=== PATIENT | female | born 1955 | race Caucasian/White ===

== ENCOUNTER 2021-08-04 21:32 | Inpatient (IN) | payer MEDICARE, SELFPAY ==
--- NOTE | ~2021-08-04 | XR_ITS ---
EXAMINATION: XR UGI water soluble w sbs DATE: 08/06/2021 11:52 INDICATION: Small bowel obstruction TECHNIQUE: Water-soluble contrast was injected through the nasogastric tube. Conventional supine abdo men radiographs and fluoroscopy of the stomach and small bowel were performed. Fluoroscopy exposure t abelino was 1.8 minutes. The DAP for this procedure was 110.86 Gycm2. COMPARISON: None. FINDINGS: UPPER GASTROINTESTINAL SERIES: The tip of the nasogastric tube is in the proximal duodenum. There is no identified hiatal hernia. Th ere was no visualized gastroesophageal reflux. The stomach shows a normal folding pattern.] SMALL BOWEL SERIES: Transit time from the stomach to proximal colon was approximately 15 minutes. There is normal caliber and mucosal fold pattern throughout the small bowel. There are mildly thickened folds in the small b owel of the left midabdomen, possibly related to recent obstruction. Terminal ileum is normal. No te thering or abnormal mass effect observed upon the small bowel with real-time fluoroscopy. IMPRESSION: 1. Resolved small bowel obstruction. Mildly thickened small bowel folds of the left upper abdomen may be related to recent obstruction. Reviewed, dictated and finalized at location A.
--- NOTE | ~2021-08-04 | CT_ITS ---
EXAMINATION: CT abdomen pelvis w con EXAM DATE: 08/04/2021 23:58 INDICATION: Mid abdominal pain. n/v/d . TECHNIQUE: Spiral CT of the abdomen and pelvis was performed following intravenous injection of 100 m L Omnipaque 350. Axial, coronal and sagittal images of the abdomen and pelvis were reviewed. The do se-length product (DLP) for this examination was 1375.71 mGy-cm. The exposure was tailored according to patient size (auto mA exposure control), and iterative reconstruction (ASIR) was used as addition al dose reduction technique. There is no prior study for comparison. FINDINGS: There is a loop of ileum (approximately 15 cm in length) that has moderately thickened wall , segment has been indicated on axial images 131-139 for your review. There is fecal stasis proximal to this, and a multiple loops of moderately distended mid small bowel up to about 3.3 cm. There is mi ld edema within the mesentery of these mid small bowel loops. Only small amount of fluid is seen with in the ileum distal to the abnormal segment. There is expected amount of colonic stool. The mesenteri c arteries and veins enhance normally. The liver, spleen, adrenal glands and pancreas are unremarkable. There are surgical clips in the gal lbladder fossa. Some biliary duct dilation which is common finding following cholecystectomy. Arun l and splenic veins are patent. Kidneys enhance symmetrically. There is no hydronephrosis. The ut erus is not identified and has likely been surgically resected. The bladder is unremarkable. There is no retroperitoneal or pelvic lymphadenopathy. The appendix is not positively visualized. There is no pericecal inflammatory change to suggest appe ndicitis. There is expected amount of colonic stool. No free intraperitoneal gas. Mild cardio megaly. The lung bases are unremarkable. Thoracic Erwin rods. There are no osteoblastic or ost eolytic lesions identified. IMPRESSION: Segment of mid small bowel with moderate wall thickening resulting in fecal stasis, moder ately distended small bowel proximal to this from ileus or obstruction. Some mesenteric edema. Appear ance most consistent with infectious enteritis or inflammatory bowel disease, although adhesion relat ed obstruction not excludable. Reviewed, dictated and finalized at location B. IMPRESSION: Segment of mid small bowel with moderate wall thickening resulting in fecal stasis, moderately distended small bowel proximal to this from ileus o r obstruction. Some mesenteric edema. Appearance most consistent with infectiou s enteritis or inflammatory bowel disease, although adhesion related obstructio n not excludable.
--- NOTE | ~2021-08-04 | XR_ITS ---
EXAMINATION: XR abdomen/kub 1V INDICATION: Small bowel obstruction TECHNIQUE: Supine views of the abdomen were obtained on 2 radiographs. COMPARISON: 08/05/2021 FINDINGS: The nasogastric tube is unchanged in position ending in the distal stomach or proximal smal l bowel. No dilated loops of bowel are identified. There is no evidence of free intraperitoneal gas. Cholecystectomy clips are noted. There is moderate osteoarthritis of the hips. Partially imaged hayes es of posterior fusion procedure are noted in the thoracic spine. IMPRESSION: 1. No dilated bowel loops identified. Reviewed, dictated and finalized at location A.
--- NOTE | ~2021-08-04 | XR_ITS ---
EXAMINATION: XR abdomen NG/feed tube rechec DATE: 08/05/2021 10:03 INDICATION: Nasogastric tube advancement. TECHNIQUE: An upright view of the abdomen was obtained. COMPARISON: CT abdomen and pelvis 08/04/2021 FINDINGS: The lower abdomen is excluded. There are no dilated loops of bowel. The nasogastric tube ti p is in the distal stomach or proximal duodenum. Surgical clips in the right upper quadrant are likel y from cholecystectomy. There are changes of posterior fusion procedure in thoracic spine. IMPRESSION: 1. Nasogastric tube tip in the distal stomach or proximal duodenum. Reviewed, dictated and finalized at location A.
--- NOTE | ~2021-08-04 | XR_ITS ---
EXAMINATION: XR abdomen NG/feed tube insert INDICATION: Nasogastric tube placement TECHNIQUE: Portable AP KUB-NG at 0220 hours COMPARISON: CT from yesterday FINDINGS: The nasogastric tube is in the stomach. There is mild atelectasis of the lung bases. The he art size is normal. Contrast from earlier CT partially opacifies the urinary tract. 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 IMPRESSION: 1. Nasogastric tube in the stomach. Reviewed, dictated and finalized at location A.
[2021-08-04 21:36] VITALS: BP 151/73; PULSE 78; RESP 16; TEMP 36.2; O2SAT 95
[2021-08-04 21:54] LABS: Basophils Absolute Auto 0.1 K/mm3 (0.0-0.1); Basophils Percent Auto 0.5 % (0.2-1.2); Eosinophils Absolute Auto 0.1 K/mm3 (0-0.3); Eosinophils Percent Auto 1.1 % (0-4.4); Hematocrit 43.4 % (37.0-47.0); Hemoglobin 14.1 g/dL (12.0-15.0); Immature Granulocyte Absolute 0.02 K/mm3 (0.00-0.031); Immature Granulocyte Percent A 0.2 % (0-0.5); Lymphocytes Absolute Auto 0.76 K/mm3 (0.9-3.2); Lymphocytes Percent Auto 8.3 % (18.3-44.2); Mean Corpuscular HGB Conc 32.5 g/dl (32-36); Mean Corpuscular Hemoglobin 30.4 pg (26-34); Mean Corpuscular Volume 93.5 fl (80-100); Mean Platelet Volume 9.9 fl (7.4-10.4); Monocytes Absolute Auto 0.4 K/mm3 (0.1-0.6); Neutrophils Absolute Auto 7.8 K/mm3 (1.3-6.7); Neutrophils Percent Auto 85.9 % (45.5-73.1); Platelet Count Result 226 k/mm3 (150-375); Red Blood Count 4.64 M/mm3 (4.2-5.4); Red Cell Distribution Width 13.7 % (11.5-14.5); White Blood Count 9.1 K/mm3 (4.5-10.0)
[2021-08-04 22:05] LABS: Alanine Aminotransferase 15 U/L (4-35); Albumin Level 4.3 g/dL (3.5-5.1); Alkaline Phosphatase 141 U/L (38-126); Anion Gap 8 mmol/L (8-16); Aspartate Amino Transferase 23 U/L (14-36); Bilirubin,Total 0.9 mg/dL (0.2-1.3); Blood Urea Nitrogen 30 mg/dL (7-17); Calcium 9.1 mg/dL (8.4-10.2); Carbon Dioxide 31 mmol/L (22-30); Chloride 98 mmol/L (98-107); Estimated CRCL calculation 69 ml/min; Estimated Glomerular Filt Rate > 60; Glucose 247 mg/dL (65-110); Lipase 242 U/L (23-300); Potassium 4.1 mmol/L (3.4-5.0); Sodium 137 mmol/L (137-145)
[2021-08-04 22:38] VITALS: O2SAT 94
[2021-08-04 23:15] VITALS: O2SAT 89
[2021-08-04 23:17] VITALS: BP 164/90; O2SAT 85
--- NOTE | 2021-08-04 23:28 | ED.ABDPAIN ---
HPI - Abdominal Pain General Chief Complaint: Abdominal Pain Stated Complaint: abdominal/back pain, n/v Time Seen by Provider: 08/04/21 22:37 Source: patient, family and RN notes reviewed Mode of arrival: ambulatory History of Present Illness HPI narrative: 66-year-old female history of cholecystectomy presented to the emergency department for evaluation of nausea vomiting and diarrhea that started this afternoon. Patient states that she has had multiple episodes of nausea and vomiting. Patient states approximately 4 PM she also began developing mid abdominal pain. Patient does report prior history of cholecystectomy. Patient denies any prior history of small bowel obstruction. Patient denies any chest pain or shortness breath. Patient denies any pain with urination Related Data Home Medications Medication Instructions Recorded Confirmed celecoxib [Celebrex] 200 mg PO DAILY 08/04/21 08/05/21 famotidine 10 mg PO BID 08/04/21 08/05/21 gabapentin 300 mg PO TID 08/04/21 08/05/21 glipizide 10 mg PO BID 08/04/21 08/05/21 hydrochlorothiazide 10 mg PO BID 08/05/21 08/05/21 mirabegron [Myrbetriq] 50 mg PO DAILY 08/05/21 08/05/21 Allergies Allergy/AdvReac Type Severity Reaction Status Date / Time azithromycin Allergy Nausea and Verified 08/04/21 21:40 Vomiting Review of Systems Review of Systems: CONSTITUTIONAL: Denies fever, chills, or sweats. EYES: Denies visual changes, redness, or discharge. ENT: Denies rhinorrhea, congestion, sore throat, or otalgia. CARDIOVASCULAR: Denies chest pain, palpitations, or edema. RESPIRATORY: Denies cough or dyspnea. GASTROINTESTINAL: Mid abdominal pain with associated nausea vomiting diarrhea. GENITOURINARY: Denies dysuria or hematuria. SKIN: Denies rash or itching. MUSCULOSKELETAL: Denies back pain, joint pain, or myalgia. NEUROLOGIC: Denies headache, numbness, or weakness. All systems reviewed & are unremarkable except as noted in HPI and below PMFSH Family History Family History (Updated 08/05/21 @ 04:55 by Ana Montes RN) Father Acute myocardial infarction Mother Lung cancer Grandparent Breast cancer Social History Social History Smoking status: Never smoker Second hand tobacco smoke exposure: No Alcohol intake: never Substance use: never Spiritual care concerns: No Exam Narrative: APPEARANCE: Well appearing, no pain, no distress, well-nourished. HEAD: normocephalic, atraumatic. EYES: PERRLA/EOMI, conjunctivae clear. NOSE: Normal no drainage NECK: Supple. No adenopathy, no masses. RESPIRATORY: Airway patent, respirations nonlabored. Clear to auscultation bilaterally, no rales, rhonchi, wheezing. CARDIOVASCULAR: Regular rate and rhythm without murmurs rubs or gallops. ABDOMINAL: Normal bowel sounds MUSCULOSKELETAL: Moves all extremities. Strength/ROM intact, No edema, No calf tenderness. NEURO: Alert. Cranial nerves II through XII intact. Grossly intact SKIN: Warm, dry. Normal Color Course Course Emergency Course: Case was discussed with Dr. Ahn and he will see the patient as consult. NG tube was placed. Discussed with the hospitalist patient was accepted for admission. Admitted on the results of the labs and imaging and plan for treatment. Vital Signs Vital signs: Vital Signs Temperature 97.1 F L 08/04/21 21:36 Pulse Rate 78 08/04/21 21:36 Respiratory Rate 16 08/04/21 21:36 Blood Pressure 151/73 H 08/04/21 21:36 Pulse Oximetry 95 08/04/21 21:36 Temperature 97.7 F 08/05/21 06:00 Pulse Rate 77 08/05/21 06:00 Respiratory Rate 18 08/05/21 06:00 Blood Pressure 160/80 H 08/05/21 06:00 Pulse Oximetry 97 08/05/21 06:00 MDM - Abdominal Pain Lab Data Attestation: I reviewed the patient's lab results. Result diagrams: 08/04/21 21:49 08/04/21 21:49 Labs: Lab Results 08/04/21 08/04/21 08/05/21 Range/Units 21:49 21:49 00:26 WBC 9.1 (4.5-10.0) K/mm3 RBC 4.64 (4.
[2021-08-04] MEDS: ONDANSETRON INJ 4 MG/2 ML VIAL IV PUSH (23:39)
[2021-08-04] MEDS: HYDROmorphone HCL INJ (*CRX) 1 MG/ML SYR 0.5 MG IV PUSH (23:39)
[2021-08-05] VITALS (17 sets, daily range): BP systolic 128–160; BP diastolic 57–87; PULSE 73–82; RESP 16–18; TEMP 35.9–37.7; O2SAT 88–99; BMI 43.4
--- NOTE | 2021-08-05 00:28 | PC.NURSE ---
Urine sent to lab
[2021-08-05 00:34] LABS: Appearance Urine Clear (Clear); Bilirubin Urine 1+ (Negative); Color Urine Yellow (Yellow); Glucose Urine UA 1+ mg/dL (Negative); Ketones Urine Trace mg/dL (Negative); Leukocyte Esterase Ur Negative LEU/UL (Negative); Nitrate Urine Negative (Negative); Protein Urine 2+ mg/dL (Negative); Specific Grav Ur >= 1.030 (1.001-1.035); pH Urine 6.5 (5.0-9.0)
[2021-08-05 00:38] LABS: Add Urine Microscopic? YES; Bacteria Urine Trace /hpf; Blood Urine Trace (Negative); Mucus Urine Few /lpf; RBC Urine 0-2 /hpf (0-2); Squamous Epithelial Cell Urine Occasional /hpf (Few); WBC Urine 0-3 /hpf
[2021-08-05] MEDS: HYDROmorphone HCL INJ (*CRX) 1 MG/ML SYR 0.5 MG IV PUSH (01:53)
--- NOTE | 2021-08-05 03:09 | PC.NURSE ---
ERP confirmed pts placement of NG tube.
--- NOTE | 2021-08-05 04:45 | ADMGEN ---
This patient, Larissa Bui, was admitted to [facility] Surg Room 313-01. Patient/family oriented to hospital policies and general routines including ID bracelet, bed and alarms, visiting hours, pain management, procedures, bathroom and other care routines, personal items, smoking policy, room service/diet, and visiting hours. Information on how to activate the Rapid Response Team has been discussed. Patient/Family are encouraged to report perceived risks to care and to ask questions if they do not understand what they are told or what they should do.
[2021-08-05] MEDS: SODIUM CHLORIDE 0.9% IV 1,000 ML 75 ML IV CONT ×2 (05:06→20:22)
[2021-08-05] MEDS: ONDANSETRON INJ 4 MG/2 ML VIAL IV PUSH (05:07)
--- NOTE | 2021-08-05 09:44 | PM.CNGS ---
Assessment and Plan Assessment and plan (1) SBO (small bowel obstruction): Code(s): K56.609 - Unspecified intestinal obstruction, unspecified as to partial versus complete obstruction Status: Acute Assessment and Plan: CT scan reviewed and discussed with the patient in detail. She is already clinically improving with no abdominal pain or tenderness on exam. Will continue to treat this with conservative measures with NG tube decompression, bowel rest, IV fluids, and analgesics. NG tube advanced 6 cm this morning and repeat KUB pending, will look out for this later this morning to confirm placement. Continue to monitor with serial abdominal exams and imaging. Discussed with the patient that this typically resolves with conservative measures, but could require exploratory surgery if no improvement in the next few days. Thank you for allowing us to see the patient in consultation and we will continue to follow along with you. (2) Type 2 diabetes mellitus: Code(s): E11.9 - Type 2 diabetes mellitus without complications Status: Acute Assessment and Plan: Glucose in the 200's on admission. No previous hgbA1C in our system. Continue to monitor labs. Management per Hospitalist. (3) Hypertension: Code(s): I10 - Essential (primary) hypertension Status: Acute (4) Obstructive sleep apnea: Code(s): G47.33 - Obstructive sleep apnea (adult) (pediatric) Status: Acute Assessment and Plan: Patient has been without her CPAP over the past few months due to having it sent back in for a recall and she has not received it back. Could use a CPAP while inpatient and encouraged her to contact the company or her insurance to have her CPAP replaced after discharge. (5) GERD (gastroesophageal reflux disease): Code(s): K21.9 - Gastro-esophageal reflux disease without esophagitis Status: Acute (6) Obesity, morbid, BMI 40.0-49.9: Code(s): E66.01 - Morbid (severe) obesity due to excess calories Status: Acute Additional Plan I have discussed the patient's case and plan of care with Dr. Ahn. History of Present Illness Consult details Consult date: 08/05/21 Reason for consult: other (Small-bowel obstruction) Requesting physician: Bennie Braun MD Narrative: This is a 66-year-old female who presented to the emergency department with complaints of abdominal pain. She has recently moved to [place] from [place] to be closer to her daughter who lives in the area. Over the past few days, she had been walking more frequently throughout the day due to the move and shopping for furniture. Yesterday, around 1:00 p.m., she began to notice mild abdominal pain that spread across her upper abdomen and around to her back. She called her daughter and initially felt she was sore due to all the walking. Her daughter brought over a heating pad and some ice, which did not help with her pain. She developed nausea and reports that her abdominal pain became more severe over the next few hours. The pain would come in waves. She denies having any similar pain in the past. She decided to come into the ER for further evaluation. She reports vomiting in the ER. CT scan of the abdomen and pelvis showed evidence of a small bowel obstruction. The patient was admitted to the hospitalist and an NG tube has been placed. Our service has been consulted for surgical evaluation of the small-bowel obstruction. The patient is now seen on the medical floor. Dr. Ahn has already evaluated the patient and requested the NG tube be advanced 6 cm, which the nurse has done this morning. The patient reports feeling much better. She denies any abdominal pain at the time of my exam. Her main complaint is the discomfort from the NG tube. She denies flatus. She denies any recent diarrhea or close contacts with similar symptoms. She does have a history of a laparoscopic cholecystectomy, total abdominal hysterectomy,
[2021-08-05] MEDS: PHENOL/SOD PHENO SPRAY CHERRY (*BKC) 1 SPRAY MUCOUS MEM (10:43)
--- NOTE | 2021-08-05 17:55 | PM.IMHP ---
H&P: HPI History of Present Illness Date/Time: 08/05/21 17:55 Chief Complaint: Abdominal pain Narrative: Pt admitted after sudden abdominal pain yesterday afternoon, pt could not keep any food down yesterday. Pt has moved recently from [place] to [facility] to be near her daughter. Pt states she has multiple surgeries over the years carpel tunnel, hysterectomy, laparoscopic cholecystectomy, back surgery and neck surgery. ct showing - Segment of mid small bowel with moderate wall thickening resulting in fecal stasis, moderately distended small bowel proximal to this from ileus or obstruction. Pt admitted for sbo, pt seen by surgery. Pt had ng tube inserted to wall suction. Pt has medical history of dm, gerd, htn and MASSIEL. Review of Systems Review of Systems: All systems reviewed & are unremarkable except as noted in HPI and below PMFSH Past Medical History Medical History GERD (gastroesophageal reflux disease) Hypertension Obstructive sleep apnea Overactive bladder Type 2 diabetes mellitus Surgical History Surgical History History of cervical spinal surgery History of section History of laparoscopic cholecystectomy History of spinal fusion History of surgery on wrist History of total abdominal hysterectomy and bilateral salpingo-oophorectomy 1999 Family History Family History Father Acute myocardial infarction Mother Lung cancer Grandparent Breast cancer Social History Social History Social History: The patient recently moved to [place] from [place] to be closer to her daughter. She lives alone in an apartment in [place] that is not considered assisted living, but does have some assistance if needed. Smoking status: Never smoker Second hand tobacco smoke exposure: No Alcohol intake: never Substance use: never Living arrangements: alone Gender identity (if verbalized by the patient): Female Spiritual care concerns: No Meds Home Medications and Allergies Home Medications Medication Instructions Recorded Confirmed Type celecoxib [Celebrex] 200 mg PO DAILY 08/04/21 08/05/21 History famotidine 10 mg PO BID 08/04/21 08/05/21 History gabapentin 300 mg PO TID 08/04/21 08/05/21 History glipizide 10 mg PO BID 08/04/21 08/05/21 History hydrochlorothiazide 10 mg PO BID 08/05/21 08/05/21 History mirabegron [Myrbetriq] 50 mg PO DAILY 08/05/21 08/05/21 History Allergies Allergy/AdvReac Type Severity Reaction Status Date / Time azithromycin Allergy Nausea and Verified 08/04/21 21:40 Vomiting Vital Signs Vital Signs - 24 hr 08/04/21 21:36 08/04/21 22:38 08/04/21 23:15 Temperature 36.2 C L Pulse Rate 78 Respiratory Rate 16 Blood Pressure 151/73 H Pulse Oximetry 95 94 89 L 08/04/21 23:17 08/05/21 00:14 08/05/21 00:19 Temperature Pulse Rate Respiratory Rate Blood Pressure 164/90 H Pulse Oximetry 85 L 93 94 08/05/21 00:27 08/05/21 00:30 08/05/21 00:45 Temperature Pulse Rate 73 Respiratory Rate Blood Pressure Pulse Oximetry 88 L 96 98 08/05/21 01:00 08/05/21 01:15 08/05/21 01:30 Temperature Pulse Rate Respiratory Rate Blood Pressure Pulse Oximetry 89 L 99 97 08/05/21 02:16 08/05/21 03:02 08/05/21 03:30 Temperature 36.5 C Pulse Rate 82 75 Respiratory Rate 18 18 Blood Pressure 155/87 H 160/84 H Pulse Oximetry 94 96 96 08/05/21 06:00 08/05/21 08:15 08/05/21 14:00 Temperature 36.5 C 35.9 C L Pulse Rate 77 81 Respiratory Rate 18 18 Blood Pressure 160/80 H 136/57 L Pulse Oximetry 97 97 98 Exam Const: General: other (overweight) HENMT: Head: normocephalic (with ng tube in situ ) Eyes: General: appearance normal, both eyes and all related struct
[2021-08-06] VITALS (8 sets, daily range): BP systolic 116–178; BP diastolic 60–93; PULSE 77–87; RESP 14–18; TEMP 36.2–36.9; O2SAT 93–99
[2021-08-06 00:37] LABS: Glucose Point of Care 137 mg/dl (65-105)
[2021-08-06 06:08] LABS: Hematocrit 40.5 % (37.0-47.0); Mean Corpuscular HGB Conc 32.1 g/dl (32-36); Mean Corpuscular Hemoglobin 30.4 pg (26-34); Mean Corpuscular Volume 94.8 fl (80-100); Mean Platelet Volume 9.7 fl (7.4-10.4); Platelet Count Result 204 k/mm3 (150-375); Red Blood Count 4.27 M/mm3 (4.2-5.4); Red Cell Distribution Width 13.5 % (11.5-14.5); White Blood Count 5.8 K/mm3 (4.5-10.0)
[2021-08-06 06:19] LABS: Glucose Point of Care 150 mg/dl (65-105)
[2021-08-06 06:20] LABS: Anion Gap 4 mmol/L (8-16); Blood Urea Nitrogen 27 mg/dL (7-17); Calcium 8.4 mg/dL (8.4-10.2); Carbon Dioxide 38 mmol/L (22-30); Chloride 98 mmol/L (98-107); Estimated CRCL calculation 70 ml/min; Estimated Glomerular Filt Rate > 60; Glucose 155 mg/dL (65-110); Potassium 3.7 mmol/L (3.4-5.0); Sodium 140 mmol/L (137-145)
--- NOTE | 2021-08-06 09:13 | PM.PNGS ---
Progress Note: A&P Assessment and Plan (1) SBO (small bowel obstruction): Code(s): K56.609 - Unspecified intestinal obstruction, unspecified as to partial versus complete obstruction Status: Acute Assessment and Plan: Plain films this morning showed a nonobstructive bowel gas pattern and the NG may potentially have been advanced into the duodenum, which could explain high NG output. Patient is passing gas and her abdominal exam is benign. Will get a Gastrografin small bowel follow through to assess. If contrast moves through to the colon without an obstruction, then we will remove the NG tube and start clear liquids. For now, continue NG tube decompression, bowel rest, and IV fluids. (2) Type 2 diabetes mellitus: Code(s): E11.9 - Type 2 diabetes mellitus without complications Status: Acute (3) Obstructive sleep apnea: Code(s): G47.33 - Obstructive sleep apnea (adult) (pediatric) Status: Acute (4) Obesity, morbid, BMI 40.0-49.9: Code(s): E66.01 - Morbid (severe) obesity due to excess calories Status: Acute Additional Plan I have discussed the patient's case and plan of care with Dr. Ahn. Subjective Subjective Date/Time Seen: 08/06/21 09:00 Patient reports: no new complaints, feels better, flatus and no bowel movement Interval history: Patient seen and examined. She reports having a headache this morning with some relief from the IV Tylenol. Denies any abdominal pain and feels her bloating is better. She was able to walk the halls yesterday. She reports flatus. NG had 1700 cc documented output from overnight, patient reportedly only had 2 cups of ice chips through the night. Review of Systems Review of Systems: All systems reviewed & are unremarkable except as noted in HPI and below Constitutional: Constitutional: Reports as per HPI, Reports no additional constitutional complaints and Reports headache(s) Gastrointestinal: Gastrointestinal: Reports as per HPI and Reports no additional gastrointestinal complaints Exam Const: General: no acute distress and awake GI: Inspection: non-distended and obesity (protuberant, rounded abdomen) GI Palp: Yes Soft to palpation, No Tenderness to palpation present (GI), No Guarding due to palpation present (GI) and No Rebound tenderness present Auscultation: Hypoactive bowel sounds present Neuro: General: moves all extremities and no focal motor deficits Extrem: General: normal to inspection Psych: Insight: Good insight present (Psych) Judgement: Good judgement present (Psych) Objective Data Vital Signs Vital Signs: Vital Signs - 24 hr 08/05/21 14:00 08/05/21 20:30 08/05/21 21:02 Temperature 96.7 F L Pulse Rate 81 82 Respiratory Rate 18 16 Blood Pressure 136/57 L Pulse Oximetry 98 95 91 08/05/21 22:00 08/06/21 05:38 08/06/21 07:46 Temperature 99.8 F H 97.2 F L 97.5 F L Pulse Rate 82 87 82 Respiratory Rate 16 16 14 Blood Pressure 128/68 129/65 147/93 H Pulse Oximetry 95 94 99 Intake/Output Intake/Output: Intake & Output 08/03/21 08/04/21 08/05/21 08/06/21 23:59 23:59 23:59 23:59 Intake Total 1320 100 Output Total 1400 2300 Balance -80 -2200 Meds/Results Medications: Active Medications Generic Name Dose Route Start Last Admin Trade Name Freq PRN Reason Stop Dose Admin Dextrose 12.5 gm 08/05/21 18:08 Dextrose 50% 25 Gm/50 Ml Syringe IV PUSH PRN PRN Hypoglycemia Protocol Enoxaparin Sodium 40 mg 08/06/21 09:00 Enoxaparin 40 Mg/0.4 Ml Syringe SUB-Q DAILY FLAKITA Glucagon 1 mg 08/05/21 18:08 Glucagon For Inj 1 Mg Vial IM PRN PRN Hypoglycemia Protocol Glucose 15 gm 08/05/21 18:08 Glucose Oral Gel 15 Gm Of Glucse In 37.5 Gm Tube PO PRN PRN Hypoglycemia Protocol Hydromorphone HCl 0.5 mg 08/05/21 01:38 08/05/21 01:53 Hydromorphone Hcl Inj (*Crx) 1 Mg/Ml Syr IV PUSH 0.5 mg Q4H PRN Administration Pain Rate
[2021-08-06] MEDS: ENOXAPARIN 40 MG/0.4 ML SYRINGE SUB-Q (09:26)
[2021-08-06] MEDS: PANTOPRAZOLE SODIUM IV 40 MG VIAL IV PUSH (09:28)
[2021-08-06] MEDS: SODIUM CHLORIDE 0.9% IV 1,000 ML 75 ML IV CONT (09:35)
[2021-08-06] MEDS: KCL 30 MEQ/0.9% SOD CHL 1,000 ML 100 ML IV CONT (09:35)
[2021-08-06 12:07] LABS: Glucose Point of Care 153 mg/dl (65-105)
--- NOTE | 2021-08-06 12:51 | PM.IMPN ---
Progress Note: A&P Assessment and Plan (1) Obesity, morbid, BMI 40.0-49.9: Code(s): E66.01 - Morbid (severe) obesity due to excess calories Status: Acute Assessment and Plan: pt adviced to loose weight diet and exercise and healthy lifestyle (2) Obstructive sleep apnea: Code(s): G47.33 - Obstructive sleep apnea (adult) (pediatric) Status: Acute Assessment and Plan: pt uses cpap at night ordered for he night (3) GERD (gastroesophageal reflux disease): Code(s): K21.9 - Gastro-esophageal reflux disease without esophagitis Status: Acute Assessment and Plan: Add ppi iv (4) Hypertension: Code(s): I10 - Essential (primary) hypertension Status: Acute Assessment and Plan: pt npo with no oral meds order iv hydralazine for high bps SBP over 160. (5) Type 2 diabetes mellitus: Code(s): E11.9 - Type 2 diabetes mellitus without complications Status: Acute Assessment and Plan: accuchecks ssi pts own hypoglycemic medications are on hold (6) SBO (small bowel obstruction): Code(s): K56.609 - Unspecified intestinal obstruction, unspecified as to partial versus complete obstruction Status: Acute Assessment and Plan: Conservative management with ng tube and slow suction bowel rest iv fluids and pain control prn Pt going for Gastrografin study Subjective Date/time seen: 08/06/21 12:51 Interval history: Pt admitted for sbo, pt seen by surgery. Pt had ng tube inserted to wall suction. Pt has medical history of dm, gerd, htn and MASSIEL. Pt seen by surgery continue NG tube and pt ordered gastrograffin study Review of Systems Review of Systems: All systems reviewed & are unremarkable except as noted in HPI and below Exam Const: General: other (overweight) HENMT: Head: normocephalic (with ng tube in situ ) Chest: Chest palpation & inspection: normal inspection of the chest Resp: Effort & Inspection: normal respiratory effort Auscultation: clear to auscultation bilaterally Cardio: Jugular venous distension: no JVD Rhythm: regular rhythm Heart sounds: S1 normal heart sound present and S2 normal heart sound present GI: Inspection: other (distended abdo soft decreased bowel sounds ) Skin: General skin exam: normal color and dry skin Neuro: Cranial nerves: Yes CN's II-XII intact bilaterally and Yes Equal, round and reactive pupils present Cognition (Neuro): normal cognition Speech: normal speech Motor exam (neuro): 5/5 motor strength present throughout Extrem: General: normal to inspection Psych: Mental Status: mental status grossly normal Objective Data Vital Signs Vital Signs: Vital Signs - 24 hr 08/05/21 14:00 08/05/21 20:30 08/05/21 21:02 Temperature 35.9 C L Pulse Rate 81 82 Respiratory Rate 18 16 Blood Pressure 136/57 L Pulse Oximetry 98 95 91 08/05/21 22:00 08/06/21 05:38 08/06/21 07:46 Temperature 37.7 C H 36.2 C L 36.4 C L Pulse Rate 82 87 82 Respiratory Rate 16 16 14 Blood Pressure 128/68 129/65 147/93 H Pulse Oximetry 95 94 99 08/06/21 12:12 Temperature 36.9 C Pulse Rate 81 Respiratory Rate 14 Blood Pressure 169/88 H Pulse Oximetry 98 Intake/Output Intake/Output: Intake & Output 08/03/21 08/04/21 08/05/21 08/06/21 23:59 23:59 23:59 23:59 Intake Total 1320 1800 Output Total 1400 3300 Balance -80 -1500 Meds/Results Medications: Active Medications Generic Name Dose Route Start Last Admin Trade Name Freq PRN Reason Stop Dose Admin Dextrose 12.5 gm 08/05/21 18:08 Dextrose 50% 25 Gm/50 Ml Syringe IV PUSH PRN PRN Hypoglycemia Protocol Enoxaparin Sodium 40 mg 08/06/21 09:00 08/06/21 09:26 Enoxaparin 40 Mg/0.4 Ml Syringe SUB-Q 40 mg DAILY FLAKITA Administration Glucagon 1 mg 08/05/21 18:08 Glucagon For Inj 1 Mg Vial IM PRN PRN Hypoglycemia Protocol Glucose 15 gm 08/05/21 18:08 Glucose Oral
[2021-08-06] MEDS: ONDANSETRON INJ 4 MG/2 ML VIAL IV PUSH (13:52)
[2021-08-06] MEDS: hydrALAZINE HCL 20 MG/ML VIAL 10 MG IV PUSH (13:59)
--- NOTE | 2021-08-06 15:03 | PC.NURSE ---
On 08/06/21, the student, Liz Aguilar, provided care and completed [facility] documentation on this patient. I have reviewed the student's documentation and agree with the findings.
[2021-08-07 00:04] VITALS: PULSE 95; RESP 22
[2021-08-07 03:26] VITALS: PULSE 94; RESP 20
[2021-08-07] MEDS: HYDROmorphone HCL INJ (*CRX) 1 MG/ML SYR 0.5 MG IV PUSH (05:03)
[2021-08-07 05:47] LABS: Hematocrit 38.7 % (37.0-47.0); Hemoglobin 12.3 g/dL (12.0-15.0); Mean Corpuscular HGB Conc 31.8 g/dl (32-36); Mean Corpuscular Hemoglobin 30.2 pg (26-34); Mean Corpuscular Volume 95.1 fl (80-100); Mean Platelet Volume 9.6 fl (7.4-10.4); Platelet Count Result 197 k/mm3 (150-375); Red Blood Count 4.07 M/mm3 (4.2-5.4); Red Cell Distribution Width 13.7 % (11.5-14.5); White Blood Count 5.7 K/mm3 (4.5-10.0)
[2021-08-07 06:00] VITALS: BP 141/69; PULSE 78; RESP 18; TEMP 36.5; O2SAT 97
[2021-08-07 06:00] LABS: Anion Gap 3 mmol/L (8-16); Blood Urea Nitrogen 23 mg/dL (7-17); Calcium 8.5 mg/dL (8.4-10.2); Carbon Dioxide 35 mmol/L (22-30); Chloride 97 mmol/L (98-107); Estimated CRCL calculation 79 ml/min; Estimated Glomerular Filt Rate > 60; Glucose 145 mg/dL (65-110); Potassium 3.6 mmol/L (3.4-5.0); Sodium 135 mmol/L (137-145)
--- NOTE | 2021-08-07 07:46 | PM.IMPN ---
Progress Note: A&P Assessment and Plan (1) SBO (small bowel obstruction): Code(s): K56.609 - Unspecified intestinal obstruction, unspecified as to partial versus complete obstruction Status: Acute Assessment and Plan: Upper GI series showed resolved small-bowel obstruction. Patient had 3 bowel movements today,passing flatus. Will advance diet to clear liquids and remove NG tube per general surgery General surgery is following and we appreciate their recommendations. -diet has been advanced to clear liquids, diabetic diet for lunch. -surgery okay to discharge, likely tomorrow, if tolerated diet. -discussed this plan with the patient, who agrees. (2) Obstructive sleep apnea: Code(s): G47.33 - Obstructive sleep apnea (adult) (pediatric) Status: Acute Assessment and Plan: On CPAP. (3) Hypertension: Code(s): I10 - Essential (primary) hypertension Status: Acute Assessment and Plan: Patient currently NPO, on hydralazine p.r.n. for systolic blood pressure over 160. -will restart home antihypertensives tomorrow, if tolerating diet well. This should also help with her peripheral edema. (4) Type 2 diabetes mellitus: Code(s): E11.9 - Type 2 diabetes mellitus without complications Status: Acute Assessment and Plan: Her home medications on hold. POC glucose are well controlled. Will continue with low-dose sliding scale insulin. - Restart glipizide upon discharge. (5) DVT prophylaxis: Code(s): Z29.9 - Encounter for prophylactic measures, unspecified Status: Acute Assessment and Plan: SCDs and Lovenox. Subjective Date/time seen: 08/07/21 07:46 66-year-old female with history of MASSIEL, GERD, hypertension, type 2 diabetes mellitus, here for abdominal pain and rule out of small bowel obstruction. She is doing well today, with multiple episodes of stooling and flatus since her upper GI series. She endorses headache, likely due to not getting her morning coffee. She has a strong appetite and has no concerns today. Denies chest pain, shortness of breath, nausea, or vomiting. She states she has mild lower extremity swelling typically. Review of Systems Review of Systems: All systems reviewed & are unremarkable except as noted in HPI and below Exam Narrative: GENERAL APPEARANCE: Alert and oriented x 3, in no apparent distress. HEENT: PERRL, EOMI. Sclerae anicteric. Moist mucous membranes. NECK: Supple. No JVD or obvious carotid bruits. RESPIRATORY: Respirations are nonlabored. Breath sounds are equal and clear bilaterally. No wheezes, Rhonchi, or rales. CARDIOVASCULAR: Regular rate and rhythm with normal S1-S2. No murmurs, gallops, or rubs. GASTROINTESTINAL: Soft, flat, and benign. No mass, tenderness, guarding, or rebound. No organomegaly or hernia. Bowel sounds are normoactive. SKIN: Warm, dry, well perfused. Good turgor. No lesions, nodules, or rashes noted. Warm and dry. No rash or lesions on limited exam. EXTREMITIES: Mild pitting edema bilaterally. No cyanosis, clubbing. Radial and pedal pulses intact. NEUROLOGICAL: Alert. Cranial nerves 2-12 are grossly intact. No gross focal deficits to casual conversation. PSYCHIATRIC: Pleasant and cooperative with normal mood and affect. Objective Data Vital Signs Vital Signs: Vital Signs - 24 hr 08/06/21 12:12 08/06/21 13:35 08/06/21 13:45 Temperature 98.4 F 97.4 F L Pulse Rate 81 77 Respiratory Rate 14 16 Blood Pressure 169/88 H 144/89 H 178/93 H Pulse Oximetry 98 99 08/06/21 15:02 08/06/21 22:00 08/06/21 22:48 Temperature 98 F Pulse Rate 87 Respiratory Rate 18 Blood Pressure 150/67 H 116/60 Pulse Oximetry 93 93 08/07/21 00:04 08/07/21 03:26 08/07/21 06:00 Temperature 97.7 F Pulse Rate 95 94 78 Respiratory Rate 22 H 20 18 Blood Pressure 141/69 H Pulse Oximetry 97 Intake/Output Intake/Output: Intake
[2021-08-07 08:00] VITALS: PULSE 78; RESP 18; O2SAT 97
[2021-08-07] MEDS: PANTOPRAZOLE 40 MG TABLET PO (08:06)
[2021-08-07] MEDS: ENOXAPARIN 40 MG/0.4 ML SYRINGE SUB-Q (08:06)
[2021-08-07] MEDS: ONDANSETRON INJ 4 MG/2 ML VIAL IV PUSH (08:08)
--- NOTE | 2021-08-07 09:03 | PM.PNGS ---
Progress Note: A&P Assessment and Plan (1) SBO (small bowel obstruction): Code(s): K56.609 - Unspecified intestinal obstruction, unspecified as to partial versus complete obstruction Status: Acute Assessment and Plan: Gastrografin UGI SBFT showed a transit time of 15 minutes. NG was removed and she is tolerating liquids. Will advance to a diabetic diet for lunch. Okay to discharge the patient from our standpoint if she is tolerating her diet later today. Follow up only as needed. (2) Type 2 diabetes mellitus: Code(s): E11.9 - Type 2 diabetes mellitus without complications Status: Acute Assessment and Plan: Advanced to a diabetic diet. Management per hospitalist. (3) Obstructive sleep apnea: Code(s): G47.33 - Obstructive sleep apnea (adult) (pediatric) Status: Acute (4) Obesity, morbid, BMI 40.0-49.9: Code(s): E66.01 - Morbid (severe) obesity due to excess calories Status: Acute Additional Plan I have discussed the patient's case and plan of care with Dr. Ahn. Subjective Subjective Date/Time Seen: 08/07/21 09:03 Patient reports: no new complaints, feels better, tolerating liquids well, flatus, diarrhea and afebrile Interval history: Patient seen and examined. Her only complaint this morning is a headache. She has had a headache since having the NG tube that comes and goes. She reports that Tylenol is helping her headache pain. She also reports some mild nausea this morning prior to breakfast, but this was around the time of her headache. The nausea resolved and she was able to tolerate her breakfast without any issues. She denies any abdominal pain or vomiting. She has had multiple liquid bowel movements since the Gastrografin study yesterday. Review of Systems Review of Systems: All systems reviewed & are unremarkable except as noted in HPI and below Exam Const: General: no acute distress and awake GI: Inspection: non-distended and obesity (protuberant, rounded abdomen) GI Palp: Yes Soft to palpation, No Tenderness to palpation present (GI), No Guarding due to palpation present (GI) and No Rebound tenderness present Auscultation: normal bowel sounds Neuro: General: moves all extremities and no focal motor deficits Extrem: General: normal to inspection Psych: Insight: Good insight present (Psych) Judgement: Good judgement present (Psych) Objective Data Vital Signs Vital Signs: Vital Signs - 24 hr 08/06/21 12:12 08/06/21 13:35 08/06/21 13:45 Temperature 98.4 F 97.4 F L Pulse Rate 81 77 Respiratory Rate 14 16 Blood Pressure 169/88 H 144/89 H 178/93 H Pulse Oximetry 98 99 08/06/21 15:02 08/06/21 22:00 08/06/21 22:48 Temperature 98 F Pulse Rate 87 Respiratory Rate 18 Blood Pressure 150/67 H 116/60 Pulse Oximetry 93 93 08/07/21 00:04 08/07/21 03:26 08/07/21 06:00 Temperature 97.7 F Pulse Rate 95 94 78 Respiratory Rate 22 H 20 18 Blood Pressure 141/69 H Pulse Oximetry 97 Intake/Output Intake/Output: Intake & Output 08/04/21 08/05/21 08/06/21 08/07/21 23:59 23:59 23:59 23:59 Intake Total 1320 3550 844 Output Total 1400 4900 Balance -80 -1350 844 Meds/Results Medications: Active Medications Generic Name Dose Route Start Last Admin Trade Name Freq PRN Reason Stop Dose Admin Dextrose 12.5 gm 08/05/21 18:08 Dextrose 50% 25 Gm/50 Ml Syringe IV PUSH PRN PRN Hypoglycemia Protocol Enoxaparin Sodium 40 mg 08/06/21 09:00 08/07/21 08:06 Enoxaparin 40 Mg/0.4 Ml Syringe SUB-Q 40 mg DAILY FLAKITA Administration Glucagon 1 mg 08/05/21 18:08 Glucagon For Inj 1 Mg Vial IM PRN PRN Hypoglycemia Protocol Glucose 15 gm 08/05/21 18:08 Glucose Oral Gel 15 Gm Of Glucse In 37.5 Gm Tube PO PRN PRN Hypoglycemia Protocol Hydralazine HCl 10 mg 08/06/21 12:53 08/06/21 13:59 Hydralazine Hcl 20 Mg/Ml Vial IV PUSH 10 mg Q8H PRN
[2021-08-07 14:00] VITALS: BP 155/76; PULSE 84; RESP 16; TEMP 36.3; O2SAT 99
[2021-08-07 22:00] VITALS: BP 139/72; PULSE 84; RESP 16; TEMP 36.4; O2SAT 98
[2021-08-08] VITALS (7 sets, daily range): BP systolic 137–140; BP diastolic 71–74; PULSE 80–85; RESP 16; TEMP 36.5–37.1; O2SAT 91–98
[2021-08-08 05:52] LABS: Hematocrit 38.5 % (37.0-47.0); Hemoglobin 12.7 g/dL (12.0-15.0); Mean Corpuscular Hemoglobin 30.2 pg (26-34); Mean Corpuscular Volume 91.7 fl (80-100); Mean Platelet Volume 9.5 fl (7.4-10.4); Platelet Count Result 185 k/mm3 (150-375); Red Cell Distribution Width 13.2 % (11.5-14.5); White Blood Count 5.3 K/mm3 (4.5-10.0)
[2021-08-08 06:02] LABS: Anion Gap 4 mmol/L (8-16); Blood Urea Nitrogen 16 mg/dL (7-17); Calcium 8.4 mg/dL (8.4-10.2); Carbon Dioxide 36 mmol/L (22-30); Chloride 98 mmol/L (98-107); Estimated CRCL calculation 70 ml/min; Estimated Glomerular Filt Rate > 60; Glucose 156 mg/dL (65-110); Potassium 4.1 mmol/L (3.4-5.0); Sodium 138 mmol/L (137-145)
--- NOTE | 2021-08-08 08:34 | PM.IMPN ---
Progress Note: A&P Assessment and Plan (1) SBO (small bowel obstruction): Code(s): K56.609 - Unspecified intestinal obstruction, unspecified as to partial versus complete obstruction Status: Acute Assessment and Plan: Upper GI series showed resolved small-bowel obstruction. She continues to have normal bowel movements and pass flatus. She denies abdominal pain, nausea, vomiting, chest pain, shortness a breath. She has been eating all of her meals since lunch yesterday. -Continue diabetic diet. -SpO2 95% at noon today -discussed this plan with the patient, who agrees. (2) Obstructive sleep apnea: Code(s): G47.33 - Obstructive sleep apnea (adult) (pediatric) Status: Acute Assessment and Plan: Patient was provided CPAP during her stay at the hospital, however she declined to use it due to ?burning? in her nose. Her CPAP at home was recalled in April of 2021, and she is awaiting a new CPAP. It was noted during her stay here overnight that she would have periodic desaturation in the 80s during the night which is consistent with her sleep apnea diagnosis. No concerns for daytime hypoxia. Discussed with the patient that she needs to return to her primary care doctor as soon as possible after discharge to work to obtain a new CPAP machine. Discussed some of the issues that can be caused by sleep apnea that is untreated. Patient acknowledged understanding. (3) Hypertension: Code(s): I10 - Essential (primary) hypertension Status: Acute Assessment and Plan: Normotensive today. heart sounds are normal on exam. Renal function is normal. - Restart 12.5 HCTZ today. (4) Type 2 diabetes mellitus: Code(s): E11.9 - Type 2 diabetes mellitus without complications Status: Acute Assessment and Plan: Her home medications are on hold. POC glucose are well controlled under 200. Will continue with low-dose sliding scale insulin while admitted. Restart glipizide upon discharge. (5) DVT prophylaxis: Code(s): Z29.9 - Encounter for prophylactic measures, unspecified Status: Acute Assessment and Plan: SCDs/ Lovenox. No need for long-term anticoagulation. Subjective Date/time seen: 08/08/21 08:34 Objective Data Vital Signs Vital Signs: Vital Signs - 24 hr 08/07/21 14:00 08/07/21 22:00 08/08/21 05:53 Temperature 97.4 F L 97.5 F L 98.7 F Pulse Rate 84 84 80 Respiratory Rate 16 16 16 Blood Pressure 155/76 H 139/72 137/71 Pulse Oximetry 99 98 98 08/08/21 08:27 Temperature Pulse Rate Respiratory Rate Blood Pressure Pulse Oximetry 94 Intake/Output Intake/Output: Intake & Output 08/05/21 08/06/21 08/07/21 08/08/21 23:59 23:59 23:59 23:59 Intake Total 1320 3550 1968 750 Output Total 1400 4900 500 950 Balance -80 -1350 1468 -200 Meds/Results Medications: Active Medications Generic Name Dose Route Start Last Admin Trade Name Freq PRN Reason Stop Dose Admin Dextrose 12.5 gm 08/05/21 18:08 Dextrose 50% 25 Gm/50 Ml Syringe IV PUSH PRN PRN Hypoglycemia Protocol Enoxaparin Sodium 40 mg 08/06/21 09:00 08/07/21 08:06 Enoxaparin 40 Mg/0.4 Ml Syringe SUB-Q 40 mg DAILY FLAKITA Administration Glucagon 1 mg 08/05/21 18:08 Glucagon For Inj 1 Mg Vial IM PRN PRN Hypoglycemia Protocol Glucose 15 gm 08/05/21 18:08 Glucose Oral Gel 15 Gm Of Glucse In 37.5 Gm Tube PO PRN PRN Hypoglycemia Protocol Hydralazine HCl 10 mg 08/06/21 12:53 08/06/21 13:59 Hydralazine Hcl 20 Mg/Ml Vial IV PUSH 10 mg Q8H PRN Administration Blood Pressure - High Hydromorphone HCl 0.5 mg 08/05/21 01:38 08/07/21 05:03 Hydromorphone Hcl Inj (*Crx) 1 Mg/Ml Syr IV PUSH 0.5 mg Q4H PRN Administration Pain Rated 7-10 Dextrose 1,000 mls @ 100 mls/hr 08/05/21 18:08 Dextrose 5% 1,000 Ml IVPB PRN PRN Hypoglycemia
[2021-08-08] MEDS: PANTOPRAZOLE 40 MG TABLET PO (09:27)
[2021-08-08] MEDS: ENOXAPARIN 40 MG/0.4 ML SYRINGE SUB-Q (09:27)
[2021-08-08] MEDS: ACETAMINOPHEN 325 MG TABLET 650 MG PO (09:29)
[2021-08-08] MEDS: hydroCHLOROthiazide 12.5 MG CAPSULE PO (09:32)
[2021-08-08 12:10] LABS: Glucose Point of Care 193 mg/dl (65-105)
--- NOTE | 2021-08-08 12:33 | PM.DS ---
DS: Admitting Diagnosis Discharge Date 08/08/2021 3:00 p.m. Admitting Diagnosis Abdominal pain DS: Discharge Diagnosis Discharge Diagnosis (1) SBO (small bowel obstruction): Code(s): K56.609 - Unspecified intestinal obstruction, unspecified as to partial versus complete obstruction Status: Acute Assessment and Plan: Patient was admitted 08/04 for nausea, vomiting, and abdominal pain with CT showing mid small bowel with wall thickening resulting in fecal stasis, moderately distended small bowel proximal to this, from either ileus or obstruction. She was admitted to rule out small-bowel obstruction and for further assessment by surgery. An NG tube was inserted in the ER and maintained until 08/06 upper GI series showed resolved small-bowel obstruction. At this point she was moved to a liquid diet, which she tolerated, and further moved to a diabetic diet, which she also tolerated. She continues to have normal bowel movements and pass flatus. She denies abdominal pain, nausea, vomiting, chest pain, shortness a breath. General surgery is okay for discharge with follow-up as needed. -Continue diabetic diet. -Discussed this plan with the patient, who agrees. (2) Obstructive sleep apnea: Code(s): G47.33 - Obstructive sleep apnea (adult) (pediatric) Status: Acute Assessment and Plan: Patient was provided CPAP during her stay at the hospital, however she declined to use it due to ?burning? in her nose. Her CPAP at home was recalled in April of 2021, and she is awaiting a new CPAP. It was noted during her stay here overnight that she would have periodic desaturation in the 80s during the night which is consistent with her sleep apnea diagnosis. No concerns for daytime hypoxia. Discussed with the patient that she needs to return to her primary care doctor as soon as possible after discharge to work to obtain a new CPAP machine. Discussed some of the issues that can be caused by sleep apnea that is untreated. Patient acknowledged understanding. Patient declines any shortness of breath, or dyspnea on exertion. -Her O2 saturations were 95%. -close follow-up with primary care after discharge to obtain new CPAP machine. (3) Hypertension: Code(s): I10 - Essential (primary) hypertension Status: Acute Assessment and Plan: Normotensive today. Heart sounds are normal on exam. Renal function is normal. - Restart 12.5 HCTZ today. (4) Type 2 diabetes mellitus: Code(s): E11.9 - Type 2 diabetes mellitus without complications Status: Acute Assessment and Plan: Her home medications are on hold. POC glucose are well controlled under 200. Continue daily Accu-Cheks while in the hospital. -restart glipizide upon discharge. (5) DVT prophylaxis: Code(s): Z29.9 - Encounter for prophylactic measures, unspecified Status: Acute Assessment and Plan: SCDs/ Lovenox. No need for long-term anticoagulation. DS: Summary Hospital Course Reason for hospitalization: Small-bowel obstruction. Hospital Course: See above for full hospital course. Status at Discharge Overall status at discharge: patient is progressing back to baseline Time Spent with Patient Time attestation: Total time spent providing and/or coordinating discharge services: 40 minutes Time spent: Greater than 30 minutes Exam Narrative: GENERAL APPEARANCE: Alert and oriented x 3, in no apparent distress. HEENT: PERRL, EOMI. Sclerae anicteric. Moist mucous membranes. NECK: Supple. No JVD or obvious carotid bruits. RESPIRATORY: Respirations are nonlabored. Breath sounds are equal and clear bilaterally. No wheezes, Rhonchi, or rales. CARDIOVASCULAR: Regular rate and rhythm with normal S1-S2. No murmurs, gallops, or rubs. GASTROINTESTINAL: Soft and benign. No mass, tenderness, guarding, or rebound. No organomegaly or hernia. Bowel sounds are present. SK
[2021-08-08 13:01] LABS: Hemoglobin A1C 6.5 % (<5.7)
--- NOTE | 2021-08-08 14:00 | PCCCNOTE ---
On 08/08/21, the student, [Jade Vergara], provided care and completed [facility] documentation on this patient. I have reviewed the student's documentation and agree with the findings.
--- NOTE | 2021-08-09 09:10 | PC.NURSE ---
A1C is 6.5. LUIS Coker aware.
== END 2021-08-08 16:10 | disposition home or self-care (01) | DRG 389 ==
LOC: ANHED 08-05 01:43 → ANH3MEDSUR 08-05 04:38
PROVIDERS: Surgery; Admitting Provider Internal Medicine; Emergency Provider Emergency Medicine; Visit Provider Student in an Organized Health Care Education/Training Program
DX: K56.609 Unspecified intestinal obstruction, unspecified as to partial versus complete obstruction (principal); Z68.41 Body mass index [BMI] 40.0-44.9, adult; R51.9 Headache, unspecified; E11.9 Type 2 diabetes mellitus without complications; E66.01 Morbid (severe) obesity due to excess calories; I10 Essential (primary) hypertension; G47.33 Obstructive sleep apnea (adult) (pediatric); K21.9 Gastro-esophageal reflux disease without esophagitis; N32.81 Overactive bladder; Z79.84 Long term (current) use of oral hypoglycemic drugs; Z90.49 Acquired absence of other specified parts of digestive tract; Z90.710 Acquired absence of both cervix and uterus
CPT/HCPCS: 36415; 74018; 74177; 74240; 74248; 80048; 80053; 81001; 82948; 83036; 83690; 85025; 85027; 96374; 96375; 99285; A9270; C9113; J0131; J0360; J1170; J1650; J2405; J3480; J7030; Q9967

== ENCOUNTER 2021-09-06 15:51 | Emergency (ER) | payer MEDICARE, OTHER, SELFPAY ==
--- NOTE | ~2021-09-06 | US_ITS ---
EXAMINATION: US venous doppler [facility] DATE: 09/06/2021 19:11 INDICATION: Lower limb pain. TECHNIQUE: Grayscale ultrasound images without and with compression and Doppler ultrasound images of the bilateral lower extremity veins were obtained. COMPARISON: None. FINDINGS: The visualized portions of right common femoral vein, profunda (deep) femoral vein, femoral vein, pop liteal vein, peroneal veins, posterior tibial veins, and greater saphenous vein outflow are patent. The visualized portions of left common femoral vein, profunda femoral vein, femoral vein, popliteal v ein, peroneal veins, posterior tibial veins, and greater saphenous vein outflow are patent. IMPRESSION: 1. No deep venous thrombosis. Reviewed, dictated and finalized at location A.
[2021-09-06 15:54] VITALS: BP 184/100; PULSE 79; RESP 18; TEMP 36.6; O2SAT 98
--- NOTE | 2021-09-06 18:25 | ECG_ITS ---
Measurements Intervals [place] Rate: 69 P: 7 DE: 194 QRS: -15 QRSD: 89 T: 51 QT: 406 QTc: 438 Interpretive Statements SINUS RHYTHM VOLTAGE CRITERIA FOR LVH BORDERLINE R WAVE PROGRESSION, ANTERIOR LEADS BORDERLINE ECG Electronically Signed On 09-06-2021 21:35:00 CDT by Luis F Borges D.O.
[2021-09-06 19:27] LABS: Basophils Percent Auto 0.7 % (0.2-1.2); Eosinophils Absolute Auto 0.2 K/mm3 (0-0.3); Eosinophils Percent Auto 3.7 % (0-4.4); Hematocrit 39.8 % (37.0-47.0); Hemoglobin 13.1 g/dL (12.0-15.0); Immature Granulocyte Absolute 0.02 K/mm3 (0.00-0.031); Immature Granulocyte Percent A 0.4 % (0-0.5); Lymphocytes Absolute Auto 1.42 K/mm3 (0.9-3.2); Lymphocytes Percent Auto 25.2 % (18.3-44.2); Mean Corpuscular HGB Conc 32.9 g/dl (32-36); Mean Corpuscular Hemoglobin 29.8 pg (26-34); Mean Corpuscular Volume 90.7 fl (80-100); Mean Platelet Volume 10.1 fl (7.4-10.4); Monocytes Absolute Auto 0.4 K/mm3 (0.1-0.6); Monocytes Percent Auto 6.6 % (2.6-8.5); Neutrophils Absolute Auto 3.6 K/mm3 (1.3-6.7); Neutrophils Percent Auto 63.4 % (45.5-73.1); Platelet Count Result 180 k/mm3 (150-375); Red Blood Count 4.39 M/mm3 (4.2-5.4); Red Cell Distribution Width 13.3 % (11.5-14.5); White Blood Count 5.6 K/mm3 (4.5-10.0)
--- NOTE | 2021-09-06 19:27 | ED.EXTPRO ---
HPI - Extremity Problem General Chief complaint: Extremity Problem,Nontraumatic Stated complaint: feet swollen Time Seen by Provider: 09/06/21 18:02 Source: RN notes reviewed History of Present Illness HPI Narrative: Patient presents emergency department from home for leg swelling. Patient states she had swelling in the bilateral legs over the past several months but worse over the past 1 week. She states she has seen her PCP Dr. Mays about this and tried water pills with no relief she called the office today is recommended come the ER for further evaluation rule out a blood clot she denies any fevers or chills, chest pain shortness of breath or any other symptoms Related Data Home Medications Medication Instructions Recorded Confirmed celecoxib [Celebrex] 200 mg PO DAILY 08/04/21 08/23/21 famotidine 10 mg PO BID 08/04/21 08/23/21 gabapentin 300 mg PO TID 08/04/21 08/23/21 glipizide 10 mg PO BID 08/04/21 08/23/21 Myrbetriq 50 mg PO DAILY 08/05/21 08/23/21 Allergies Allergy/AdvReac Type Severity Reaction Status Date / Time azithromycin Allergy Nausea and Verified 08/23/21 14:30 Vomiting Review of Systems Review of Systems: Gen.: Denies fevers or chills ENT: Denies congestion Respiratory: Denies shortness of breath or cough CV: Denies chest pain or palpitations GI: Denies abdominal pain nausea, emesis or diarrhea Musculoskeletal: Left leg swelling Neuro: Denies numbness, tingling, weakness or focal weakness Skin: Denies rash Except as documented, all other systems reviewed and negative [facility] Past Medical History Medical History Carpal tunnel syndrome Functional gait abnormality GERD (gastroesophageal reflux disease) Hypertension Obstructive sleep apnea Overactive bladder Type 2 diabetes mellitus Surgical History Surgical History History of cervical spinal surgery History of section History of laparoscopic cholecystectomy History of spinal fusion History of surgery on wrist History of total abdominal hysterectomy and bilateral salpingo-oophorectomy 1999 Family History Family History Father Acute myocardial infarction Mother Lung cancer Grandparent Breast cancer Social History Social History Social History: The patient recently moved to [place] from [place] to be closer to her daughter. She lives alone in an apartment in [place] that is not considered assisted living, but does have some assistance if needed. Smoking status: Never smoker Second hand tobacco smoke exposure: No Alcohol intake: never Substance use: never Substance use type: does not use Gender identity (if verbalized by the patient): Female Sexual Orientation (if Verbalized by the Patient): Straight or Heterosexual Spiritual care concerns: No Exam Narrative: APPEARANCE: No acute distress, nontoxic, resting in bed EYES: EOMI HEENT: Normocephalic, atraumatic, OMM RESPIRATORY: No respiratory distress Clear to auscultation bilaterally with no rhonchi wheezing or rales. CARDIOVASCULAR: Regular rate and rhythm without murmurs rubs or gallops. ABDOMINAL: Soft, nontender, nondistended, no rebound or guarding MUSCULOSKELETAl: Moves all extremities. No clubbing, cyanosis 3+ edema the bilateral lower extremities, bilateral dorsalis pedis pulse 2+, no tenderness of the calves NEURO: Awake and alert. Following commands, speech normal, no focal deficits SKIN:: Warm, dry. No rashes lesions or abrasions PSYCHIATRIC: Normal affect/mood, Course Course Emergency Course: Discussed with patient results of workup and diagnosis. Discussed need for follow-up with primary care, proper use of medication, and reasons to return to the emergency department. Patient understands and agrees to current treatment
[2021-09-06 19:37] LABS: Alanine Aminotransferase 13 U/L (6-35); Albumin Level 3.8 g/dL (3.5-5.1); Alkaline Phosphatase 104 U/L (38-126); Anion Gap 6 mmol/L (8-16); Aspartate Amino Transferase 21 U/L (14-36); Bilirubin,Total 0.9 mg/dL (0.2-1.3); Blood Urea Nitrogen 18 mg/dL (7-17); Calcium 9.3 mg/dL (8.4-10.2); Carbon Dioxide 30 mmol/L (22-30); Chloride 102 mmol/L (98-107); Estimated CRCL calculation 77 ml/min; Estimated Glomerular Filt Rate > 60; Glucose 111 mg/dL (65-110); Potassium 3.6 mmol/L (3.4-5.0); Sodium 138 mmol/L (137-145)
[2021-09-06 19:39] LABS: Partial Thromboplastin Time 29.6 SECONDS (22.3-36.8)
[2021-09-06 19:47] LABS: NT Pro B Type Natriuretic Pept 126 pg/mL (5-100); Troponin I < 0.012 ng/mL (0.000-0.034)
[2021-09-06 20:31] VITALS: BP 167/96; PULSE 73; RESP 18; O2SAT 95
== END 2021-09-06 20:33 | disposition home or self-care (01) ==
PROVIDERS: Emergency Provider Emergency Medicine; PCP Family Medicine
DX: R60.0 Localized edema (principal); I10 Essential (primary) hypertension; E11.9 Type 2 diabetes mellitus without complications; G47.33 Obstructive sleep apnea (adult) (pediatric); N32.81 Overactive bladder; K21.9 Gastro-esophageal reflux disease without esophagitis; Z98.1 Arthrodesis status; Z79.899 Other long term (current) drug therapy; Z79.84 Long term (current) use of oral hypoglycemic drugs; R94.31 Abnormal electrocardiogram [ECG] [EKG]
CPT/HCPCS: 36415; 80053; 83880; 84484; 85025; 85610; 85730; 93005; 93970; 99284

== ENCOUNTER 2021-10-03 17:38 | Emergency (ER) | payer MEDICARE, OTHER, SELFPAY ==
--- NOTE | ~2021-10-03 | CT_ITS ---
EXAMINATION: CT lumbar spine wo con DATE: 10/03/2021 23:28 INDICATION: Low back pain. TECHNIQUE: Computed tomography (CT) of the lumbar spine was performed without intravenous contrast. A utomated exposure control and iterative reconstruction technique were employed. The dose-length produ ct was 1305.19 mGy-cm. COMPARISON: None FINDINGS: There is 3 degrees levocurvature of lumbar spine. There are changes of posterior fusion pro cedure in the thoracic spine terminating at T11. Vertebral body heights are normal. There is moderate ly decreased disc height at T11-T12, mildly decreased disc height at T12-L1, moderately decreased dis c height at L1-L2, and mildly decreased disc height from L2-L3 through L5-S1. Osseous central spinal canal is developmentally small in lumbar spine. The following disc levels are specifically discussed: L1-L2: The disc is bulging. There is severe bilateral facet joint osteoarthritis. There is mild bilat eral neural foraminal stenosis. There is mild central canal stenosis. L2-L3: The disc is bulging. There is severe bilateral facet joint osteoarthritis. There is moderate b ilateral neural foraminal stenosis. There is moderate central canal stenosis. L3-L4: The disc is bulging. There is severe bilateral facet joint osteoarthritis. There is moderate b ilateral neural foraminal stenosis. There is severe central canal stenosis. L4-L5: The disc is bulging. There is severe bilateral facet joint osteoarthritis. There is moderate b ilateral neural foraminal stenosis. There is moderate central canal stenosis. L5-S1: The disc is bulging. There is severe bilateral facet joint osteoarthritis. There is moderate b ilateral neural foraminal stenosis. There is mild central canal stenosis. IMPRESSION: 1. Moderate lumbar spondylosis. 2. Posterior fusion procedure in thoracic spine. Reviewed, dictated and finalized at location A.
[2021-10-03 18:13] VITALS: BP 197/96; PULSE 93; RESP 18; TEMP 37.3; O2SAT 97
[2021-10-03 22:27] VITALS: BP 196/110; PULSE 97; RESP 20; O2SAT 93
--- NOTE | 2021-10-03 22:27 | PC.NURSE ---
Pt states she was taken off her HTN medications in August 2021. Unsure of reason why.
--- NOTE | 2021-10-03 22:46 | ED.BACK ---
HPI - Back Pain/Injury General Chief Complaint: Back Pain/Injury <TED Clifford Last Filed: 10/04/21 00:20> Stated Complaint: lower back pain <TED Clifford Last Filed: 10/04/21 00:20> Time Seen by Provider: 10/03/21 22:27 <TED Clifford Last Filed: 10/04/21 00:20> Source: patient <TED Clifford Last Filed: 10/04/21 00:20> Mode of arrival: EMS <TED Clifford Last Filed: 10/04/21 00:20> Limitations: no limitations <TED Clifford Last Filed: 10/04/21 00:20> History of Present Illness HPI Narrative: This is a 66-year-old female that presents to the emergency department for low back pain. Ongoing since last night. No known recent injury or trauma. The pain sometimes radiates into her left leg and is associated with some tingling in the leg. Worse with movement and relieved with rest. Denies saddle anesthesia, or bowel/bladder incontinence. <TED Clifford Last Filed: 10/04/21 00:20> Related Data Home Medications: Home Medications Medication Instructions Recorded Confirmed celecoxib 200 mg capsule (Celebrex) 200 mg PO DAILY 08/04/21 08/23/21 famotidine 10 mg tablet 10 mg PO BID 08/04/21 08/23/21 gabapentin 300 mg capsule 300 mg PO TID 08/04/21 08/23/21 glipizide 10 mg tablet 10 mg PO BID 08/04/21 08/23/21 mirabegron 50 mg tablet,extended 50 mg PO DAILY 08/05/21 08/23/21 release 24 hr (Myrbetriq) <TED Clifford Last Filed: 10/04/21 00:20> Allergies/Adverse Reactions: Allergies Allergy/AdvReac Type Severity Reaction Status Date / Time azithromycin Allergy Nausea and Verified 10/03/21 22:27 Vomiting <TED Clifford Last Filed: 10/04/21 00:20> Review of Systems Review of Systems: CONSTITUTIONAL: Denies fever SKIN: Denies rash MUSCULOSKELETAL: Reports back pain, joint pain, and myalgia. NEUROLOGIC: Denies numbness, or weakness. <Kathy Ott PA-C - Last Filed: 10/04/21 00:20> All systems reviewed & are unremarkable except as noted in HPI and below <Kathy Ott PA-C - Last Filed: 10/04/21 00:20> [facility] Past Medical History Medical History: Medical History Carpal tunnel syndrome Functional gait abnormality GERD (gastroesophageal reflux disease) Hypertension Obstructive sleep apnea Overactive bladder Type 2 diabetes mellitus <TED Clifford Last Filed: 10/04/21 00:20> Surgical History Surgical History: Surgical History History of cervical spinal surgery History of section History of laparoscopic cholecystectomy History of spinal fusion History of surgery on wrist History of total abdominal hysterectomy and bilateral salpingo-oophorectomy 1999 <Kathy Ott PA-C - Last Filed: 10/04/21 00:20> Family History Family History: Family History Father Acute myocardial infarction Mother Lung cancer Grandparent Breast cancer <TED Clifford Last Filed: 10/04/21 00:20> Social History Social History: Social History Social History: The patient recently moved to [place] from [place] to be closer to her daughter. She lives alone in an apartment in [place] that is not considered assisted living, but does have some assistance if needed. Smoking status: Never smoker Second hand tobacco smoke exposure: No Alcohol intake: never Substance use: never Substance use type: does not use Gender identity (if verbalized by the patient): Female Sexual Orientation (if Verbalized by the Patient): Straight or Heterosexual Spiritual care concerns: No <TED Clifford Last Filed: 10/04/21 00:20> Exam Narrative: GENERAL: Well-appearing, well-nourished, and in no acute dis
[2021-10-03] MEDS: CYCLOBENZAPRINE HCL 10 MG TABLET PO (22:49)
[2021-10-03] MEDS: KETOROLAC (*BKC) 60 MG/2 ML VIAL IM (22:50)
[2021-10-04 00:11] VITALS: BP 168/84; PULSE 93; RESP 16; O2SAT 94
[2021-10-04 00:19] VITALS: BP 167/84
== END 2021-10-04 00:44 | disposition home or self-care (01) ==
PROVIDERS: Emergency Provider Emergency Medicine; PCP Family Medicine
DX: M54.42 Lumbago with sciatica, left side (principal); I10 Essential (primary) hypertension; E11.9 Type 2 diabetes mellitus without complications
CPT/HCPCS: 72131; 96372; 99284; A9270; J1885

== ENCOUNTER 2021-10-05 08:26 | Inpatient (IN) | payer MEDICARE, OTHER, SELFPAY ==
[2021-10-05] VITALS (11 sets, daily range): BP systolic 164–195; BP diastolic 79–100; PULSE 88–99; RESP 16–22; TEMP 36.9–37.9; O2SAT 90–99; BMI 43.0
--- NOTE | ~2021-10-05 | CT_ITS ---
EXAMINATION: CT thoracic lumbar wo con DATE: 10/07/2021 14:49 INDICATION: Low back pain. TECHNIQUE: Computed tomography (CT) of the thoracic and lumbar spine was performed without intravenou s contrast. Automated exposure control and iterative reconstruction technique were employed. The dose -length product was 2247.40 mGy-cm. COMPARISON: Lumbar spine CT 10/03/2021 FINDINGS: CT THORACIC SPINE: Partially visualized is atelectasis in right lung middle lobe. There are changes o f anterior fusion procedure at C6-C7 with interbody bone graft and anterior plate and screws. There a re changes of posterior fusion procedure from T4 to T11 with pedicle screws. Vertebral body heights a re normal. There is mildly decreased disc height at most levels. There are bridging endplate osteophy jc from T4 to T12, consistent with diffuse idiopathic skeletal hyperostosis (DISH). There is ossific ation of the ligamentum flavum at many levels in thoracic spine. There is severe facet joint hypertro phy at many levels in thoracic spine. There is mild neural foraminal stenosis at multiple levels. On the right, there is moderate neural foraminal stenosis at T2-T3, severe neural foraminal stenosis at T3-T4, T4-T5, and T5-T6, moderate neural foraminal stenosis at T6-T7, severe neural foraminal stenosi s at T7-T8, and moderate neural foraminal stenosis at T8-T9 and T9-T10. On the left, there is moderat e neural foraminal stenosis at T3-T4 and T4-T5, severe neural foraminal stenosis at T5-T6 and T6-T7, and moderate neural foraminal stenosis at T7-T8 and T8-T9. There is mild central canal stenosis at mu ltiple levels. There is moderate central canal stenosis at T2-T3, T5-T6, T6-T7, T7-T8, T8-T9, and T11 -T12. CT LUMBAR SPINE: There is 3 degrees levocurvature of lumbar spine. Vertebral body heights are normal. There is moderately decreased disc height at L1-L2 and mildly decreased disc height from L2-L3 throu gh L5-S1. Osseous central spinal canal is developmentally small in lumbar spine. The following disc l evels are specifically discussed: L1-L2: The disc is bulging. There is severe bilateral facet joint osteoarthritis. There is mild bilat eral neural foraminal stenosis. There is mild central canal stenosis. L2-L3: The disc is bulging. There is severe bilateral facet joint osteoarthritis. There is moderate b ilateral neural foraminal stenosis. There is moderate central canal stenosis. L3-L4: The disc is bulging. There is severe bilateral facet joint osteoarthritis. There is moderate b ilateral neural foraminal stenosis. There is severe central canal stenosis. L4-L5: The disc is bulging. There is severe bilateral facet joint osteoarthritis. There is moderate b ilateral neural foraminal stenosis. There is moderate central canal stenosis. L5-S1: The disc is bulging. There is severe bilateral facet joint osteoarthritis. There is moderate b ilateral neural foraminal stenosis. There is mild central canal stenosis. IMPRESSION: 1. Moderate thoracic and lumbar spondylosis. 2. Posterior fusion procedure in thoracic spine. Reviewed, dictated and finalized at location B.
--- NOTE | ~2021-10-05 | XR_ITS ---
EXAMINATION: XR abdomen/kub 1V DATE: 10/10/2021 09:57 INDICATION: Adynamic ileus. TECHNIQUE: A supine view of the abdomen on 2 radiographs was obtained. COMPARISON: Abdomen radiographs 10/09/2021 FINDINGS: The colon is distended. There is stool in the proximal colon and in the rectum. The small b owel is normal in caliber. There are changes of posterior fusion procedure in thoracic spine. Surgica l clips in the right upper quadrant are likely from cholecystectomy. IMPRESSION: 1. Persistent distention of the colon, consistent with adynamic ileus or less likely distal obstructi on. Reviewed, dictated and finalized at location B. IMPRESSION: 1. Persistent distention of the colon, consistent with adynamic ileus or less l ikely distal obstruction.
--- NOTE | ~2021-10-05 | XR_ITS ---
EXAMINATION: XR abdomen/kub 1V DATE: 10/09/2021 11:05 INDICATION: Abdominal pain. Abdominal distention. TECHNIQUE: A supine view of the abdomen on 2 radiographs was obtained. COMPARISON: Small bowel series 08/06/2021, CT abdomen and pelvis 08/04/2021 FINDINGS: There are no dilated loops of small bowel. There is a small volume of stool in the colon. T here is gaseous distention of the colon. There are changes of posterior fusion procedure in thoracic spine. Surgical clips in the right upper quadrant are likely from cholecystectomy. IMPRESSION: 1. Gaseous distention of the colon, consistent with adynamic ileus or less likely distal obstruction. Reviewed, dictated and finalized at location B. IMPRESSION: 1. Gaseous distention of the colon, consistent with adynamic ileus or less like ly distal obstruction.
--- NOTE | ~2021-10-05 | XR_ITS ---
EXAMINATION: XR knee LT 3V DATE: 10/11/2021 14:34 INDICATION: Anterior left knee pain. TECHNIQUE: 3 views of left knee were obtained. COMPARISON: None. FINDINGS: Bone alignment is normal. No fracture. There is severe osteoarthritis of medial compartment and mild osteoarthritis of lateral and patellofemoral compartments. No knee joint effusion. IMPRESSION: 1. Severe left knee osteoarthritis. Reviewed, dictated and finalized at location B.
--- NOTE | ~2021-10-05 | XR_ITS ---
EXAMINATION: XR chest 2V 10/06/2021 10:25 INDICATION: Hypoxia shortness of breath PROCEDURE: 2 view chest COMPARISON: No prior studies for comparison. FINDINGS: There is right middle lobe atelectasis. No edema. The cardiomediastinal silhouette is withi n normal limits. There are no pleural effusions. There is no pneumothorax suspected. There are mikaela gical changes consistent with thoracic spine fusion. IMPRESSION: 1: Right middle lobe atelectasis. Reviewed, dictated and finalized at location A.
[2021-10-05] MEDS: HYDROcodone/acetaminophen (*CRX) 5-325 MG TABLET 1 TAB PO ×3 (09:21→20:58)
[2021-10-05 09:26] LABS: Basophils Percent Auto 0.5 % (0.2-1.2); Hemoglobin 12.9 g/dL (12.0-15.0); Immature Granulocyte Absolute 0.02 K/mm3 (0.00-0.031); Immature Granulocyte Percent A 0.3 % (0-0.5); Immature Platelet Fraction Pct 3.9 % (0.9-11.2); Lymphocytes Absolute Auto 0.45 K/mm3 (0.9-3.2); Lymphocytes Percent Auto 7.4 % (18.3-44.2); Mean Corpuscular HGB Conc 33.1 g/dl (32-36); Mean Corpuscular Hemoglobin 29.4 pg (26-34); Mean Corpuscular Volume 88.8 fl (80-100); Mean Platelet Volume 10.1 fl (7.4-10.4); Monocytes Absolute Auto 0.4 K/mm3 (0.1-0.6); Monocytes Percent Auto 6.5 % (2.6-8.5); Neutrophils Absolute Auto 5.2 K/mm3 (1.3-6.7); Neutrophils Percent Auto 85.3 % (45.5-73.1); Platelet Count Result 152 k/mm3 (150-375); Red Blood Count 4.39 M/mm3 (4.2-5.4); Red Cell Distribution Width 13.4 % (11.5-14.5); White Blood Count 6.1 K/mm3 (4.5-10.0)
[2021-10-05 09:34] LABS: Anion Gap 7 mmol/L (8-16); Blood Urea Nitrogen 22 mg/dL (7-17); Calcium 8.9 mg/dL (8.4-10.2); Carbon Dioxide 28 mmol/L (22-30); Chloride 101 mmol/L (98-107); Estimated CRCL calculation 78 ml/min; Estimated Glomerular Filt Rate > 60; Glucose 198 mg/dL (65-110); Sodium 136 mmol/L (137-145)
--- NOTE | 2021-10-05 09:45 | ED.BACK ---
HPI - Back Pain/Injury General Chief Complaint: Back Pain/Injury Stated Complaint: chronic back condition Time Seen by Provider: 10/05/21 08:29 History of Present Illness HPI Narrative: 66-year-old female who has history of spinal stenosis status post surgery and chronic back pain presents here because she states that the pain has been so excruciating over the last week that she is now unable to ambulate even with her walker, she lives alone in an handicapped apartment, she has not been to physical therapy, she has only been taking Tylenol and muscle relaxants at home and states that they are not helping. She states that she has tingling in both legs, but no saddle anesthesia, no focal weakness, no urinary or fecal incontinence. Related Data Home Medications Medication Instructions Recorded Confirmed celecoxib 200 mg capsule (Celebrex) 200 mg PO DAILY 08/04/21 10/05/21 famotidine 10 mg tablet 10 mg PO BID 08/04/21 10/05/21 gabapentin 300 mg capsule 300 mg PO TID 08/04/21 10/05/21 glipizide 10 mg tablet 10 mg PO BID 08/04/21 10/05/21 mirabegron 50 mg tablet,extended 50 mg PO DAILY 08/05/21 10/05/21 release 24 hr (Myrbetriq) Allergies Allergy/AdvReac Type Severity Reaction Status Date / Time azithromycin Allergy Nausea and Verified 10/05/21 08:31 Vomiting Review of Systems Review of Systems: CONST: No fever. HEENT: No sore throat C/V: No chest pain RESP: No cough GI: No nausea or vomiting : No urinary retention M/S: Neck pain SKIN: No rash. NEURO: Tingling in both legs, worse in her left PSYCH: [No depression] [facility] Past Medical History Medical History (Updated 10/05/21 @ 13:08 by Radha Evans MD) Carpal tunnel syndrome Functional gait abnormality GERD (gastroesophageal reflux disease) Hypertension Obstructive sleep apnea Overactive bladder Type 2 diabetes mellitus Surgical History Surgical History (Updated 10/05/21 @ 12:56 by Stephenie Sheth PA-C) History of cervical spinal surgery Rods implanted History of section History of laparoscopic cholecystectomy History of spinal fusion History of surgery on wrist Carpal tunnel surgery History of total abdominal hysterectomy and bilateral salpingo-oophorectomy 1999 Family History Family History Father Acute myocardial infarction Mother Lung cancer Grandparent Breast cancer Social History Social History (Updated 10/05/21 @ 12:59 by Stephenie Sheth PA-C) Social History: Ms. Rider lives alone in a senior apartment. She moved to [facility] from [place] about 3 months ago to be closer to her daughter. Her primary care provider is Dr. Kat. She is retired. She is typically independent in her daily activities. She designates her daughter, Larissa Spence as her surrogate decision maker. She would like to be a DNR. Smoking status: Never smoker Second hand tobacco smoke exposure: No Alcohol intake: never Substance use: never Substance use type: does not use Gender identity (if verbalized by the patient): Female Spiritual care concerns: No Exam Narrative: EXAMINATION OF ORGAN SYSTEMS/BODY AREAS: Constitutional: Vital signs per nursing GENERAL: Appears uncomfortable in the bed HEAD: Normal with no signs of head trauma. EYES: EOMI, conjunctiva normal ENT: Hearing grossly intact LUNGS: Nonlabored breathing. HEART: [Regular rate and rhythm] ABD: [Soft], [nontender to palpation] EXT: Normal range of motion, good/equal strength bilateral lower extremities with ankle/knee/hip flexion/extension SKIN: [No rashes or lesions.] NEURO: [Alert and oriented x 3. No gross focal strength deficits but endorses tingling in both lower extremities.] PSYCH: Normal affect Course Vital Signs Vital signs: Vital Signs Temperature 98.9 F 10/05/21 08:23 Pulse Rate 94 10/05/21 08:23 Respiratory Rate 16 10/05/21 08:23 Blood Pressure 195/100 H 10/05/21 0
--- NOTE | 2021-10-05 12:38 | PM.IMHP ---
H&P: HPI History of Present Illness Date/Time: 10/05/21 12:38 Chief Complaint: Low back pain Narrative: Date of service: 10/05/2021 Larissa Rider is a 66-year-old female with a history of type 2 diabetes mellitus, hypertension, MASSIEL currently untreated off of CPAP, gait dysfunction, and overactive bladder who presented to the emergency department on 10/05/2021 with complaints of severe ?excruciating? back pain that is sharp in nature. Patient states her pain started earlier this week with a gradual aching that improved with Tylenol. Four nights ago her pain became more severe in the middle of her lower back. She took some Tylenol and try to walk this off but it still hurt. The next day her pain got so bad that she decided to call 911 for evaluation. She mentions that she had to sit in the ER and waited for 5 hours which did worsen her back pain. She was evaluated at that time with a CT scan of the lumbar spine which revealed moderate lumbar spondylosis with central canal stenosis ranging from mild to severe. She was discharged home with Flexeril which she states did not help her symptoms. She also states that ice and heat did not help her symptoms and in fact made it worse. Her pain continued to worsen while at home to the point where she was not able to walk. She reported feeling as though her legs were ?giving out? from under her. She had to have a friend come over to assist her with ambulation to the bathroom. This morning she attempted to stand up and fell right back into her chair and this prompted her to seek emergency evaluation. The patient states that she has been using a walker for the past 3 months ?for safety reasons,? although she denies any recent falls or injuries. She does admit that about 6 months ago she fell on to her back but did not seek evaluation for this and did not have any back pain in till this past week. She endorses tingling in her bilateral calves and feet, which she describes as a ?tight? sensation. She denies saddle anesthesia, bowel or bladder incontinence. Her back pain does not radiate. She received a Conway in the ED which did give her symptomatic relief for about 1 hour but now her pain has come back. She was going to be discharged from the ED but she was not able to walk and therefore she is being admitted to the hospitalist service in this setting. Supervising physician for this history and physical is Dr. Tarik Lay. Review of Systems Review of Systems: All systems reviewed with pertinent positives and negatives as per HPI. Additionally, patient endorses swelling in her lower extremities, stating the left is worse than the right. She has recently started Lasix for this which has improved her symptoms. She endorses urinary frequency which she relates to her OAB but denies any additional urinary symptoms including dysuria or hematuria. She denies shortness breath, cough, or chest pain. She denies dizziness or lightheadedness. She does endorse feeling weak, particularly in her lower extremities. Also endorses rather significant fatigue, stating when she sits down she will typically fall right asleep. [facility] Past Medical History Medical History (Updated 10/05/21 @ 13:08 by Radha Evans MD) Carpal tunnel syndrome Functional gait abnormality GERD (gastroesophageal reflux disease) Hypertension Obstructive sleep apnea Overactive bladder Type 2 diabetes mellitus Surgical History Surgical History (Updated 10/05/21 @ 12:56 by Stephenie Sheth PA-C) History of cervical spinal surgery Rods implanted History of section History of laparoscopic cholecystectomy History of spinal fusion History of surgery on wrist Carpal tunnel surgery History of total abdominal hysterectomy and bilateral salpingo-oophorectomy 1999 Family History Family History Father Acute myocardial infarction Mother Lung cancer Grandparent B
--- NOTE | 2021-10-05 12:58 | ADMGEN ---
This patient, Larissa Rider, was admitted to [facility] Surg Room 305-02 at 1220. Patient/family oriented to hospital policies and general routines including ID bracelet, bed and alarms, visiting hours, pain management, procedures, bathroom and other care routines, personal items, smoking policy, room service/diet, and visiting hours. Information on how to activate the Rapid Response Team has been discussed. Patient/Family are encouraged to report perceived risks to care and to ask questions if they do not understand what they are told or what they should do.
[2021-10-05] MEDS: GABAPENTIN 300 MG CAPSULE PO ×2 (13:55→20:58)
--- NOTE | 2021-10-05 14:50 | PCOTNOTE ---
Attempted Occupational therapy evaluation. Patient reports being in too much pain and said that her legs just gave out a little while ago in the ER. Patient is willing to attempt evaluation tomorrow.
--- NOTE | 2021-10-05 14:56 | PCPTNOTE ---
Attempted initial evaluation, patient declined due to being in excruciating pain. Will continue to follow.
[2021-10-05 15:55] LABS: Glucose Point of Care 202 mg/dl (65-105)
[2021-10-05] MEDS: ACETAMINOPHEN 325 MG TABLET 650 MG PO ×2 (16:40→22:44)
[2021-10-05] MEDS: INSULIN ASPART (*BKC) 100 UNITS/ML SUB-Q (16:41)
[2021-10-05] MEDS: CYCLOBENZAPRINE HCL 10 MG TABLET PO ×2 (16:41→20:58)
[2021-10-05] MEDS: FAMOTIDINE 10 MG TABLET PO (17:15)
[2021-10-05 21:46] LABS: Glucose Point of Care 172 mg/dl (65-105)
[2021-10-05 23:32] LABS: Appearance Urine Clear (Clear); Bilirubin Urine 2+ (Negative); Blood Urine Negative (Negative); Color Urine Yellow (Yellow); Glucose Urine UA Trace mg/dL (Negative); Ketones Urine 1+ mg/dL (Negative); Leukocyte Esterase Ur Negative LEU/UL (Negative); Nitrate Urine Negative (Negative); Protein Urine 3+ mg/dL (Negative); Specific Grav Ur >= 1.030 (1.001-1.035); pH Urine 5.5 (5.0-9.0)
[2021-10-05] MEDS: hydrALAZINE HCL 20 MG/ML VIAL 10 MG IV PUSH (23:36)
[2021-10-05 23:37] LABS: Amorphous Sediment Urine Few; Bacteria Urine Trace /hpf; Mucus Urine Moderate /lpf; Squamous Epithelial Cell Urine Occasional /hpf (Few)
[2021-10-05 23:43] LABS: Add Urine Microscopic? YES
[2021-10-06 00:25] VITALS: BP 161/92; PULSE 97; RESP 18; TEMP 37.3; O2SAT 96
[2021-10-06 02:20] LABS: SARS-CoV-2 RNA PCR Negative
[2021-10-06] MEDS: HYDROcodone/acetaminophen (*CRX) 5-325 MG TABLET 1 TAB PO ×4 (02:48→21:25)
[2021-10-06] MEDS: CYCLOBENZAPRINE HCL 10 MG TABLET PO ×4 (05:48→23:34)
[2021-10-06] MEDS: GABAPENTIN 300 MG CAPSULE PO ×3 (05:48→21:27)
[2021-10-06 06:00] VITALS: BP 143/92; PULSE 93; RESP 20; TEMP 36.6; O2SAT 97
[2021-10-06 06:51] LABS: Anion Gap 3 mmol/L (8-16); Blood Urea Nitrogen 18 mg/dL (7-17); Calcium 8.4 mg/dL (8.4-10.2); Carbon Dioxide 31 mmol/L (22-30); Chloride 100 mmol/L (98-107); Estimated CRCL calculation 78 ml/min; Estimated Glomerular Filt Rate > 60; Glucose 172 mg/dL (65-110); Potassium 3.8 mmol/L (3.4-5.0); Sodium 134 mmol/L (137-145)
[2021-10-06 08:10] VITALS: O2SAT 94
[2021-10-06 08:20] VITALS: O2SAT 95
[2021-10-06 08:46] LABS: Glucose Point of Care 210 mg/dl (65-105)
[2021-10-06] MEDS: FAMOTIDINE 10 MG TABLET PO ×2 (08:50→16:32)
[2021-10-06] MEDS: INSULIN ASPART (*BKC) 100 UNITS/ML SUB-Q ×3 (08:52→16:32)
[2021-10-06] MEDS: MIRABEGRON 50 MG ER TABLET PO (09:35)
[2021-10-06] MEDS: FUROSEMIDE 10 MG TABLET PO (09:35)
[2021-10-06] MEDS: ENOXAPARIN 40 MG/0.4 ML SYRINGE SUB-Q (09:35)
--- NOTE | 2021-10-06 11:22 | PM.IMPN ---
Progress Note: A&P Assessment and Plan (1) Lumbar spondylosis: Code(s): M47.816 - Spondylosis without myelopathy or radiculopathy, lumbar region Status: Acute Assessment and Plan: Patient presented with low back pain CT of the lumbar spine revealed moderate lumbar spondylosis with severe central canal stenosis at L3-L4 She was provided outpatient referral to neurosurgery at ER visit 2 days prior No saddle anesthesia, loss of bowel or bladder control. Neurovascularly intact on exam. Unable to obtain MRI due to hardware from previous cervical spinal surgery Supportive care. Analgesics available as needed. Ice and heat as tolerated. PCP note from July 2021 notes chronic numbness in the bilateral lower extremities, though patient states this is new onset with back pain. (2) Difficulty in walking: Code(s): R26.2 - Difficulty in walking, not elsewhere classified Status: Acute Assessment and Plan: Secondary to back pain. Appreciate PT/OT evaluation Depending on how patient progresses with therapy, may need to consider short-term rehab placement Seems this may not be entirely acute. PCP visit from July 2021 suggest functional gait abnormality. Patient declined PT/OT at that time. Declined to participate in PT/OT yesterday due to pain. Discussed necessity of PT/OT eval during admission (3) Weakness: Code(s): R53.1 - Weakness Status: Acute Assessment and Plan: Likely secondary to above. Will evaluate TSH, B12, folate though I doubt this is a systemic issue. Appreciate PT/OT evaluation (4) Type 2 diabetes mellitus: Code(s): E11.9 - Type 2 diabetes mellitus without complications Status: Acute Assessment and Plan: Last A1c was 6.5 in July 2021 Continue Accu-Cheks, sliding scale insulin, hypoglycemic protocol Hold home glipizide (5) Hypertension: Qualifiers: Hypertension type: primary hypertension Qualified Code(s): I10 - Essential (primary) hypertension Code(s): I10 - Essential (primary) hypertension Status: Acute Assessment and Plan: Blood pressure reviewed and has been slightly elevated secondary to pain. Last BP 143/92 Patient does not appear to be on any p.o. antihypertensives. Hydralazine 10 mg q6h as needed for systolic BP >160 during acute pain period. Continue to monitor blood pressure trends closely. Subjective Date/time seen: 10/06/21 11:22 Interval history: Date of service: 10/06/2021 Larissa Rider is a 66-year-old female with a history of type 2 diabetes mellitus, hypertension, MASSIEL currently untreated off of CPAP, gait dysfunction, and overactive bladder?who is seen in follow-up for low back pain. She states she is still feeling very poorly today. She rates her back pain as 8/10. She has had of its small amount of improvement since yesterday but nothing to speak of. She states ice helped her symptoms briefly last night. She has not been out of bed since arrival and has been using the bedpan to urinate. She has not had a bowel movement since Thursday. She feels like she is in too much pain to try to sit up or get out of bed. She declined to participate in therapy yesterday due to this pain. Discussed with her that therapy needs to be completed in order to make progress with mobility. She is willing to work with therapy today. She denies shortness of breath, cough, chest pain. Denies nausea, vomiting, fever, chills, dizziness, lightheadedness. She does complain of pain in her bilateral thighs today. Continues to deny saddle anaesthesia, loss of bowel or bladder control. Denies numbness or tingling in extremities. She feels weak overall. Appetite has been good. Review of Systems Review of Systems: All systems reviewed & are unremarkable except as noted in HPI and below Exam Narrative: General: Obese, well-appearing 66-year-old female, sitting up in bed, appears sli
[2021-10-06 12:00] LABS: Glucose Point of Care 243 mg/dl (65-105)
[2021-10-06] MEDS: ACETAMINOPHEN 325 MG TABLET 650 MG PO (12:09)
[2021-10-06 14:00] VITALS: BP 168/83; PULSE 92; RESP 20; TEMP 36.6; O2SAT 91
[2021-10-06 16:21] LABS: Glucose Point of Care 211 mg/dl (65-105)
[2021-10-06 20:00] VITALS: BP 180/94; PULSE 106; RESP 20; TEMP 37.1; O2SAT 96
[2021-10-06] MEDS: DOCUSATE SODIUM 100 MG CAPSULE PO (21:27)
[2021-10-06] MEDS: hydrALAZINE HCL 20 MG/ML VIAL 10 MG IV PUSH (21:37)
[2021-10-06 22:45] LABS: Glucose Point of Care 241 mg/dl (65-105)
[2021-10-07] VITALS (7 sets, daily range): BP systolic 173–181; BP diastolic 77–99; PULSE 100–103; RESP 20; TEMP 36.6–36.9; O2SAT 90–97
--- NOTE | 2021-10-07 | ECHO_ITS ---
Patient Info Name: Larissa Rider Age: 66 years : 1955 Gender: Female Ht: 65 in Wt: 258 lbs BSA: 2.38 m2 HR: 102 bpm BP: 173 / 88 mmHg Heart Rhythm: Sinus Rhythm Technical Quality: Fair Exam Date: 10/07/2021 3:09 PM Exam Location: [facility] Patient Status: Inpatient Admit Date: 10/07/2021 Staff Ordering Physician: Stephenie Sheth PA-C Credit And Collection Manager: Trixie Ruiz RDCS Attending Provider: Stephenie Sheth PA-C Referring Physician: Meryl BO; Exam Type: CA echo doppler color flow Study Info Indications - bacteremia Complete two-dimensional, color flow and Doppler transthoracic echocardiogram is performed. Summary 1. Complete two-dimensional, color flow and Doppler transthoracic echocardiogram is performed. 2. Left ventricular chamber dimension is normal. 3. Left ventricular systolic function is normal, estimated at 60-65%. 4. There is mildly increased left ventricular wall thickness. 5. The left ventricular diastolic function is grade I diastolic dysfunction. 6. E/e' 12 is mildly elevated. 7. There is mild aortic valve sclerosis. 8. The mitral valve has mildly calcified annulus. 9. No pulmonary hypertension, estimated pulmonary arterial systolic pressure is 16 mmHg. Left Ventricle E/e' 12 is mildly elevated. Left ventricular chamber dimension is normal. Left ventricular systolic function is normal, estimated at 60-65%. There is mildly increased left ventricular wall thickness. The left ventricular diastolic function is grade I diastolic dysfunction. Right Ventricle Right ventricular systolic function is normal and with normal TAPSE 2.1 cm. Right ventricular chamber dimension is normal. Left Atria Left atrial chamber dimension is normal. Right Atria Right atrial chamber dimension is normal. Aortic Valve The aortic valve is trileaflet. There is mild aortic valve sclerosis. There is no aortic valve stenosis. There is no aortic valve regurgitation. No aortic valve vegetation visualized. Pulmonic Valve No obvious pulmonic valve vegetation visualized. There is no pulmonic regurgitation. Mitral Valve The mitral valve has mildly calcified annulus. There is no mitral valve stenosis. There is no mitral valve regurgitation. No mitral valve vegetation visualized. Tricuspid Valve There is no tricuspid valve regurgitation. No pulmonary hypertension, estimated pulmonary arterial systolic pressure is 16 mmHg. No tricuspid valve vegetation visualized. Pericardium/Pleural There is no pericardial effusion. Inferior Vena Cava Normal inferior vena cava with >50% collapse upon inspiration consistent with normal right atrial pressure, 5 mmHg. Aorta The aortic root size at the sinus of Valsalva is normal. Left Ventricular Outflow Tract Name Value Normal LVOT 2D LVOT Diameter 2.0 cm LVOT Doppler LVOT Peak Gradient 9 mmHg LVOT Mean Gradient 5 mmHg LVOT VTI 24 cm LVOT VTI/AV VTI Ratio 0.7 LVOT Stroke Volume
[2021-10-07] MEDS: HYDROcodone/acetaminophen (*CRX) 5-325 MG TABLET 1 TAB PO ×3 (03:10→19:50)
[2021-10-07] MEDS: GABAPENTIN 300 MG CAPSULE PO ×3 (06:17→21:04)
[2021-10-07 06:18] LABS: Hematocrit 37.3 % (37.0-47.0); Hemoglobin 12.7 g/dL (12.0-15.0); Mean Corpuscular Hemoglobin 29.3 pg (26-34); Mean Corpuscular Volume 85.9 fl (80-100); Mean Platelet Volume 10.1 fl (7.4-10.4); Platelet Count Result 158 k/mm3 (150-375); Red Blood Count 4.34 M/mm3 (4.2-5.4); Red Cell Distribution Width 13.3 % (11.5-14.5); White Blood Count 8.6 K/mm3 (4.5-10.0)
[2021-10-07] MEDS: hydrALAZINE HCL 20 MG/ML VIAL 10 MG IV PUSH ×2 (06:27→21:45)
[2021-10-07 06:38] LABS: Anion Gap 7 mmol/L (8-16); Blood Urea Nitrogen 14 mg/dL (7-17); Calcium 8.8 mg/dL (8.4-10.2); Carbon Dioxide 28 mmol/L (22-30); Chloride 94 mmol/L (98-107); Estimated CRCL calculation 88 ml/min; Estimated Glomerular Filt Rate > 60; Glucose 223 mg/dL (65-110); Potassium 3.6 mmol/L (3.4-5.0); Sodium 129 mmol/L (137-145)
[2021-10-07 07:45] LABS: Folic Acid 5.7 ng/mL (2.76->20)
[2021-10-07 07:48] LABS: Glucose Point of Care 223 mg/dl (65-105)
[2021-10-07] MEDS: INSULIN ASPART (*BKC) 100 UNITS/ML SUB-Q ×4 (08:05→16:58)
[2021-10-07] MEDS: ENOXAPARIN 40 MG/0.4 ML SYRINGE SUB-Q (08:05)
[2021-10-07] MEDS: polyethylene glycoL 3350 17 GM POWD.PACK PO (08:05)
[2021-10-07] MEDS: FUROSEMIDE 10 MG TABLET PO (08:06)
[2021-10-07] MEDS: MIRABEGRON 50 MG ER TABLET PO (08:06)
[2021-10-07] MEDS: DOCUSATE SODIUM 100 MG CAPSULE PO ×2 (08:06→19:50)
[2021-10-07] MEDS: FAMOTIDINE 10 MG TABLET PO ×2 (08:06→16:58)
[2021-10-07] MEDS: CYCLOBENZAPRINE HCL 10 MG TABLET PO ×2 (08:51→19:50)
[2021-10-07 11:15] LABS: Glucose Point of Care 264 mg/dl (65-105)
--- NOTE | 2021-10-07 13:41 | P.PNIM_ITS ---
Progress Note: A&P Assessment and Plan (1) Bacteremia: Code(s): R78.81 - Bacteremia Status: Acute Assessment and Plan: Blood cultures with growth of staphylococcus aureus in 2/2 bottles * Patient is not septic. Mild tachycardia. No leukocytosis. Low grade fever <100.4. No tachypnea. * Concerning for diskitis or abscess in setting of worsened back pain. Repeat lumbar CT is pending. Will also evaluate thoracic CT * Pt with hardware from cervical spinal surgery. No s/sx to suggest cervical infection. Monitor clinically. * Less likely consideration is transient bacteremia from cutaneous source, though patient does not have any wounds/skin openings * UA without concerns for infection. Patient asymptomatic. No evidence of GI source. CXR without concerns for infection. * Will obtain echocardiogram * Continue IV Vancomycin while awaiting final culture and susceptibility results * Plan for repeat cultures in 24 hours (2) Lumbar spondylosis: Code(s): M47.816 - Spondylosis without myelopathy or radiculopathy, lumbar region Status: Acute Assessment and Plan: Patient presented with increased low back pain * CT of the lumbar spine revealed moderate lumbar spondylosis with severe central canal stenosis at L3-L4 * She was provided outpatient referral to neurosurgery at ER visit 2 days prior * No saddle anesthesia, loss of bowel or bladder control. Neurovascularly intact on exam. * Unable to obtain MRI due to hardware from previous cervical spinal surgery * Supportive care. Analgesics available as needed. Ice and heat as tolerated. * PCP note from July 2021 notes chronic numbness in the bilateral lower extremities, though patient states this is new onset with back pain. (3) Difficulty in walking: Code(s): R26.2 - Difficulty in walking, not elsewhere classified Status: Acute Assessment and Plan: Secondary to back pain. * Appreciate PT/OT evaluation * Depending on how patient progresses with therapy, may need to consider short- term rehab placement * Seems this may not be entirely acute. PCP visit from July 2021 suggest functional gait abnormality. Patient declined PT/OT at that time. * Continue with PT/OT (4) Weakness: Code(s): R53.1 - Weakness Status: Acute Assessment and Plan: Likely secondary to above. * TSH, B12, folate within normal limits * Appreciate PT/OT evaluation (5) Type 2 diabetes mellitus: Code(s): E11.9 - Type 2 diabetes mellitus without complications Status: Acute Assessment and Plan: Last A1c was 6.5 in July 2021. Blood sugars have been elevated this admission. * Continue Accu-Cheks, high dose sliding scale insulin, hypoglycemic protocol * Add scheduled novolog 5 units TID with meals * Hold home glipizide (6) Hypertension: Qualifiers: Hypertension type: primary hypertension Qualified Code(s): I10 - Essential (primary) hypertension Code(s): I10 - Essential (primary) hypertension Status: Acute Assessment and Plan: Blood pressure reviewed and have elevated secondary to pain. * Patient does not appear to be on any p.o. antihypertensives. * Hydralazine 10 mg q6h as needed for systolic BP >160 during acute pain period. * Continue to monitor blood pressure trends closely. * Will need to consider addition of antihypertensive agent if BP remains elevated with improved pain control Subjective Date/time seen: 10/07/21 13:41 Interval history: Date of service: 10/06/2021 Larissa Herrera
--- NOTE | 2021-10-07 13:41 | PM.IMPN ---
Progress Note: A&P Assessment and Plan (1) Bacteremia: Code(s): R78.81 - Bacteremia Status: Acute Assessment and Plan: Blood cultures with growth of staphylococcus aureus in 2/2 bottles Patient is not septic. Mild tachycardia. No leukocytosis. Low grade fever <100.4. No tachypnea. Concerning for diskitis or abscess in setting of worsened back pain. Repeat lumbar CT is pending. Will also evaluate thoracic CT Pt with hardware from cervical spinal surgery. No s/sx to suggest cervical infection. Monitor clinically. Less likely consideration is transient bacteremia from cutaneous source, though patient does not have any wounds/skin openings UA without concerns for infection. Patient asymptomatic. No evidence of GI source. CXR without concerns for infection. Will obtain echocardiogram Continue IV Vancomycin while awaiting final culture and susceptibility results Plan for repeat cultures in 24 hours (2) Lumbar spondylosis: Code(s): M47.816 - Spondylosis without myelopathy or radiculopathy, lumbar region Status: Acute Assessment and Plan: Patient presented with increased low back pain CT of the lumbar spine revealed moderate lumbar spondylosis with severe central canal stenosis at L3-L4 She was provided outpatient referral to neurosurgery at ER visit 2 days prior No saddle anesthesia, loss of bowel or bladder control. Neurovascularly intact on exam. Unable to obtain MRI due to hardware from previous cervical spinal surgery Supportive care. Analgesics available as needed. Ice and heat as tolerated. PCP note from July 2021 notes chronic numbness in the bilateral lower extremities, though patient states this is new onset with back pain. (3) Difficulty in walking: Code(s): R26.2 - Difficulty in walking, not elsewhere classified Status: Acute Assessment and Plan: Secondary to back pain. Appreciate PT/OT evaluation Depending on how patient progresses with therapy, may need to consider short-term rehab placement Seems this may not be entirely acute. PCP visit from July 2021 suggest functional gait abnormality. Patient declined PT/OT at that time. Continue with PT/OT (4) Weakness: Code(s): R53.1 - Weakness Status: Acute Assessment and Plan: Likely secondary to above. TSH, B12, folate within normal limits Appreciate PT/OT evaluation (5) Type 2 diabetes mellitus: Code(s): E11.9 - Type 2 diabetes mellitus without complications Status: Acute Assessment and Plan: Last A1c was 6.5 in July 2021. Blood sugars have been elevated this admission. Continue Accu-Cheks, high dose sliding scale insulin, hypoglycemic protocol Add scheduled novolog 5 units TID with meals Hold home glipizide (6) Hypertension: Qualifiers: Hypertension type: primary hypertension Qualified Code(s): I10 - Essential (primary) hypertension Code(s): I10 - Essential (primary) hypertension Status: Acute Assessment and Plan: Blood pressure reviewed and have elevated secondary to pain. Patient does not appear to be on any p.o. antihypertensives. Hydralazine 10 mg q6h as needed for systolic BP >160 during acute pain period. Continue to monitor blood pressure trends closely. Will need to consider addition of antihypertensive agent if BP remains elevated with improved pain control Subjective Date/time seen: 10/07/21 13:41 Interval history: Date of service: 10/06/2021 Larissa Rider is a 66-year-old female with a history of type 2 diabetes mellitus, hypertension, MASSIEL currently untreated off of CPAP, gait dysfunction, and overactive bladder?who is seen in follow-up for low back pain. She states she feels better today. She continues to rate her pain as 8/10. She states her pain is worse with turning or sliding in the bed. It improves when she sits on an incline. Describes tingling in the left leg. She states
[2021-10-07 14:28] LABS: Sodium 127 mmol/L (137-145)
[2021-10-07 16:28] LABS: Glucose Point of Care 282 mg/dl (65-105)
[2021-10-07 21:46] LABS: Glucose Point of Care 226 mg/dl (65-105)
[2021-10-08 05:39] VITALS: BP 179/91; PULSE 94; RESP 20; TEMP 36.8; O2SAT 91
[2021-10-08] MEDS: hydrALAZINE HCL 20 MG/ML VIAL 10 MG IV PUSH ×3 (06:24→21:38)
[2021-10-08] MEDS: HYDROcodone/acetaminophen (*CRX) 5-325 MG TABLET 1 TAB PO ×3 (06:24→21:39)
[2021-10-08] MEDS: CYCLOBENZAPRINE HCL 10 MG TABLET PO ×2 (06:29→14:08)
[2021-10-08] MEDS: GABAPENTIN 300 MG CAPSULE PO ×3 (06:29→21:20)
[2021-10-08 07:32] VITALS: O2SAT 92
[2021-10-08 07:45] LABS: Glucose Point of Care 244 mg/dl (65-105)
[2021-10-08 08:08] LABS: Hematocrit 37.8 % (37.0-47.0); Hemoglobin 12.8 g/dL (12.0-15.0); Mean Corpuscular HGB Conc 33.9 g/dl (32-36); Mean Corpuscular Hemoglobin 29.2 pg (26-34); Mean Corpuscular Volume 86.3 fl (80-100); Platelet Count Result 177 k/mm3 (150-375); Red Blood Count 4.38 M/mm3 (4.2-5.4); Red Cell Distribution Width 13.3 % (11.5-14.5); White Blood Count 9.1 K/mm3 (4.5-10.0)
[2021-10-08 08:30] LABS: Anion Gap 7 mmol/L (8-16); Blood Urea Nitrogen 18 mg/dL (7-17); Calcium 8.9 mg/dL (8.4-10.2); Carbon Dioxide 28 mmol/L (22-30); Chloride 95 mmol/L (98-107); Estimated CRCL calculation 88 ml/min; Estimated Glomerular Filt Rate > 60; Glucose 236 mg/dL (65-110); Potassium 3.4 mmol/L (3.4-5.0); Sodium 130 mmol/L (137-145)
[2021-10-08] MEDS: INSULIN ASPART (*BKC) 100 UNITS/ML SUB-Q ×4 (08:32→17:26)
[2021-10-08] MEDS: ENOXAPARIN 40 MG/0.4 ML SYRINGE SUB-Q (08:34)
[2021-10-08] MEDS: FAMOTIDINE 10 MG TABLET PO ×2 (08:34→17:26)
[2021-10-08] MEDS: DOCUSATE SODIUM 100 MG CAPSULE PO ×2 (08:34→21:20)
[2021-10-08] MEDS: MIRABEGRON 50 MG ER TABLET PO (08:34)
[2021-10-08] MEDS: polyethylene glycoL 3350 17 GM POWD.PACK PO (08:34)
[2021-10-08 08:42] LABS: Vancomycin Trough 10.5 ug/mL (10.0-20.0)
[2021-10-08] MEDS: FUROSEMIDE 10 MG TABLET PO (10:02)
--- NOTE | 2021-10-08 10:23 | P.PNIM_ITS ---
Progress Note: A&P Assessment and Plan (1) Bacteremia: Code(s): R78.81 - Bacteremia Status: Acute Assessment and Plan: Blood cultures with growth of staphylococcus aureus in 2/2 bottles * Patient is not septic. Mild tachycardia. No leukocytosis. Low grade fever <100.4. No tachypnea. * Concerning for osteomyelitis/diskitis or in setting of worsened back pain. No evidence of infection of CT thoracic/lumbar spine. * Pt with hardware from cervical spinal surgery. No s/sx to suggest cervical infection. Monitor clinically. * Less likely consideration is transient bacteremia from cutaneous source, though patient does not have any wounds/skin openings * UA without concerns for infection. Patient asymptomatic. No evidence of GI source. CXR without concerns for infection. * Echocardiogram without vegetations. * Sensitivity results reviewed. Discussed with ID PharmD. Will discontinue Vancomycin. Transition to IV Cefazolin 2 g q8h. * Repeat blood cultures today (2) Lumbar spondylosis: Code(s): M47.816 - Spondylosis without myelopathy or radiculopathy, lumbar region Status: Acute Assessment and Plan: Patient presented with increased low back pain * CT of the lumbar spine revealed moderate lumbar spondylosis with severe central canal stenosis at L3-L4 * No saddle anesthesia, loss of bowel or bladder control. Neurovascularly intact on exam. * Unable to obtain MRI due to hardware from previous cervical spinal surgery * Supportive care. Analgesics available as needed. Ice and heat as tolerated. * PCP note from July 2021 notes chronic numbness in the bilateral lower extremities, though patient states this is new onset with back pain. * Repeat CT thoracic/lumbar spine 10/07. Lumbar CT unchanged. Thoracic CT also reveals moderate spondylosis. Attempted neurosurgical consultation at this facility. Not able to be completed (no Neurosurgical consultations until October). Subsequently called [facility] to discuss with on-call neurosurgeon. Directed to Ortho Spine surgery. Spoke with Vicenta at the transfer center. Vicenta states [facility] not able to review case via phone as they are unable to provide recommendations via phone but will accept for transfer. Discussed with hospitalist, Dr. Rg, who accepts the patient for admission and recommends continuing present management while monitoring repeat blood cultures until they are negative. Awaiting bed availability. Call out to [facility] to discuss with Neurosurgery/Ortho Spine surgery. Awaiting return call. Per Ana at transfer center, no bed availability and will not accept on wait list. (3) Difficulty in walking: Code(s): R26.2 - Difficulty in walking, not elsewhere classified Status: Acute Assessment and Plan: Secondary to back pain. * Appreciate PT/OT evaluation * Seems this may not be entirely acute. PCP visit from July 2021 suggest functional gait abnormality. Patient declined PT/OT at that time. * Continue with PT/OT * 10/07: patient attempted to stand but unable to maintain upright position. (4) Weakness: Code(s): R53.1 - Weakness Status: Acute Assessment and Plan: Likely secondary to above. * TSH, B12, folate within normal limits * Appreciate PT/OT evaluation (5) Type 2 diabetes mellitus: Code(s): E11.9 - Type 2 diabetes mellitus without complications Status: Acute Assessment and Plan: Last A1c was 6.5 in July 2021. Blood sugars have been elevated this admission. * Continue Accu-Cheks, high dose sliding scale insulin, hypoglycemic protocol * A
--- NOTE | 2021-10-08 10:23 | PM.IMPN ---
Progress Note: A&P Assessment and Plan (1) Bacteremia: Code(s): R78.81 - Bacteremia Status: Acute Assessment and Plan: Blood cultures with growth of staphylococcus aureus in 2/2 bottles Patient is not septic. Mild tachycardia. No leukocytosis. Low grade fever <100.4. No tachypnea. Concerning for osteomyelitis/diskitis or in setting of worsened back pain. No evidence of infection of CT thoracic/lumbar spine. Pt with hardware from cervical spinal surgery. No s/sx to suggest cervical infection. Monitor clinically. Less likely consideration is transient bacteremia from cutaneous source, though patient does not have any wounds/skin openings UA without concerns for infection. Patient asymptomatic. No evidence of GI source. CXR without concerns for infection. Echocardiogram without vegetations. Sensitivity results reviewed. Discussed with ID PharmD. Will discontinue Vancomycin. Transition to IV Cefazolin 2 g q8h. Repeat blood cultures today (2) Lumbar spondylosis: Code(s): M47.816 - Spondylosis without myelopathy or radiculopathy, lumbar region Status: Acute Assessment and Plan: Patient presented with increased low back pain CT of the lumbar spine revealed moderate lumbar spondylosis with severe central canal stenosis at L3-L4 No saddle anesthesia, loss of bowel or bladder control. Neurovascularly intact on exam. Unable to obtain MRI due to hardware from previous cervical spinal surgery Supportive care. Analgesics available as needed. Ice and heat as tolerated. PCP note from July 2021 notes chronic numbness in the bilateral lower extremities, though patient states this is new onset with back pain. Repeat CT thoracic/lumbar spine 10/07. Lumbar CT unchanged. Thoracic CT also reveals moderate spondylosis. Attempted neurosurgical consultation at this facility. Not able to be completed (no Neurosurgical consultations until October). Subsequently called [facility] to discuss with on-call neurosurgeon. Directed to Ortho Spine surgery. Spoke with Vicenta at the transfer center. Vicenta states [facility] not able to review case via phone as they are unable to provide recommendations via phone but will accept for transfer. Discussed with hospitalist, Dr. Rg, who accepts the patient for admission and recommends continuing present management while monitoring repeat blood cultures until they are negative. Awaiting bed availability. Call out to [facility] to discuss with Neurosurgery/Ortho Spine surgery. Awaiting return call. Per Ana at transfer center, no bed availability and will not accept on wait list. (3) Difficulty in walking: Code(s): R26.2 - Difficulty in walking, not elsewhere classified Status: Acute Assessment and Plan: Secondary to back pain. Appreciate PT/OT evaluation Seems this may not be entirely acute. PCP visit from July 2021 suggest functional gait abnormality. Patient declined PT/OT at that time. Continue with PT/OT 10/07: patient attempted to stand but unable to maintain upright position. (4) Weakness: Code(s): R53.1 - Weakness Status: Acute Assessment and Plan: Likely secondary to above. TSH, B12, folate within normal limits Appreciate PT/OT evaluation (5) Type 2 diabetes mellitus: Code(s): E11.9 - Type 2 diabetes mellitus without complications Status: Acute Assessment and Plan: Last A1c was 6.5 in July 2021. Blood sugars have been elevated this admission. Continue Accu-Cheks, high dose sliding scale insulin, hypoglycemic protocol Add scheduled novolog 7 units TID with meals Resume home glipizide. (6) Hypertension: Qualifiers: Hypertension type: primary hypertension Qualified Code(s): I10 - Essential (primary) hypertension Code(s): I10 - Essential (primary) hypertension Status: Acute Assessment and Plan: Blood pressure reviewed and have elevated this admissi
[2021-10-08 11:18] LABS: Glucose Point of Care 224 mg/dl (65-105)
[2021-10-08] MEDS: INSULIN ASPART (*BKC) 100 UNITS/ML 7 UNITS SUB-Q ×2 (12:36→17:26)
[2021-10-08 13:35] VITALS: BP 179/86; PULSE 95; RESP 16; TEMP 37; O2SAT 97
[2021-10-08] MEDS: ceFAZolin 2 GM/D5W 50 ML 2 GM/50 ML BAG IVPB ×2 (14:08→21:20)
[2021-10-08 16:18] LABS: Glucose Point of Care 246 mg/dl (65-105)
[2021-10-08] MEDS: glipiZIDE 5 MG TABLET 10 MG PO (17:26)
[2021-10-08 21:36] VITALS: BP 188/95; PULSE 95; RESP 20; TEMP 37; O2SAT 92
[2021-10-08 21:41] LABS: Glucose Point of Care 169 mg/dl (65-105)
[2021-10-08 23:12] VITALS: PULSE 100; O2SAT 97
[2021-10-09 03:05] VITALS: PULSE 94; O2SAT 96
[2021-10-09] MEDS: HYDROcodone/acetaminophen (*CRX) 5-325 MG TABLET 1 TAB PO (03:55)
[2021-10-09 05:38] VITALS: BP 168/81; PULSE 96; RESP 20; TEMP 36.4; O2SAT 94
[2021-10-09 06:13] LABS: Hematocrit 36.5 % (37.0-47.0); Hemoglobin 12.5 g/dL (12.0-15.0); Mean Corpuscular HGB Conc 34.2 g/dl (32-36); Mean Corpuscular Hemoglobin 29.5 pg (26-34); Mean Corpuscular Volume 86.1 fl (80-100); Platelet Count Result 231 k/mm3 (150-375); Red Blood Count 4.24 M/mm3 (4.2-5.4); Red Cell Distribution Width 13.4 % (11.5-14.5); White Blood Count 9.4 K/mm3 (4.5-10.0)
[2021-10-09] MEDS: glipiZIDE 5 MG TABLET 10 MG PO ×2 (06:24→17:07)
[2021-10-09] MEDS: GABAPENTIN 300 MG CAPSULE PO ×3 (06:25→21:07)
[2021-10-09] MEDS: ceFAZolin 2 GM/D5W 50 ML 2 GM/50 ML BAG IVPB ×3 (06:25→21:07)
[2021-10-09 06:42] LABS: Anion Gap 6 mmol/L (8-16); Blood Urea Nitrogen 22 mg/dL (7-17); Calcium 8.8 mg/dL (8.4-10.2); Carbon Dioxide 32 mmol/L (22-30); Chloride 94 mmol/L (98-107); Estimated CRCL calculation 78 ml/min; Estimated Glomerular Filt Rate > 60; Glucose 200 mg/dL (65-110); Potassium 3.3 mmol/L (3.4-5.0); Sodium 132 mmol/L (137-145)
[2021-10-09 07:25] LABS: Glucose Point of Care 191 mg/dl (65-105)
[2021-10-09] MEDS: FUROSEMIDE 10 MG TABLET PO (08:55)
[2021-10-09] MEDS: FAMOTIDINE 10 MG TABLET PO ×2 (08:55→17:07)
[2021-10-09] MEDS: LOSARTAN POTASSIUM 25 MG TABLET PO (08:55)
[2021-10-09] MEDS: polyethylene glycoL 3350 17 GM POWD.PACK PO (08:55)
[2021-10-09] MEDS: DOCUSATE SODIUM 100 MG CAPSULE PO ×2 (08:55→21:02)
[2021-10-09] MEDS: ENOXAPARIN 40 MG/0.4 ML SYRINGE SUB-Q (08:55)
[2021-10-09] MEDS: MIRABEGRON 50 MG ER TABLET PO (08:55)
[2021-10-09] MEDS: POTASSIUM CHLORIDE 20 MEQ TABLET 40 MEQ PO (08:58)
[2021-10-09] MEDS: INSULIN ASPART (*BKC) 100 UNITS/ML 7 UNITS SUB-Q ×3 (08:58→17:06)
[2021-10-09] MEDS: CYCLOBENZAPRINE HCL 10 MG TABLET PO ×2 (09:02→21:02)
--- NOTE | 2021-10-09 09:30 | PM.IMPN ---
Progress Note: A&P Assessment and Plan (1) Bacteremia: Code(s): R78.81 - Bacteremia Status: Acute Assessment and Plan: Blood cultures with growth of staphylococcus aureus in 2/2 bottles Patient is not septic. Mild tachycardia. No leukocytosis. Low grade fever <100.4. No tachypnea. Concerning for osteomyelitis/diskitis or in setting of worsened back pain. No evidence of infection of CT thoracic/lumbar spine. Pt with hardware from cervical spinal surgery. No s/sx to suggest cervical infection. Monitor clinically. Less likely consideration is transient bacteremia from cutaneous source, though patient does not have any wounds/skin openings UA without concerns for infection. Patient asymptomatic. No evidence of GI source. CXR without concerns for infection. Echocardiogram without vegetations. Sensitivity results reviewed. Discussed with ID PharmD. Will discontinue Vancomycin. Transition to IV Cefazolin 2 g q8h. Repeat blood cultures still pending WBC is in normal 9.4 (2) Lumbar spondylosis: Code(s): M47.816 - Spondylosis without myelopathy or radiculopathy, lumbar region Status: Acute Assessment and Plan: Patient presented with increased low back pain CT of the lumbar spine revealed moderate lumbar spondylosis with severe central canal stenosis at L3-L4 No saddle anesthesia, loss of bowel or bladder control. Neurovascularly intact on exam. Unable to obtain MRI due to hardware from previous cervical spinal surgery Supportive care. Analgesics available as needed. Ice and heat as tolerated. PCP note from July 2021 notes chronic numbness in the bilateral lower extremities, though patient states this is new onset with back pain. Repeat CT thoracic/lumbar spine 10/07. Lumbar CT unchanged. Thoracic CT also reveals moderate spondylosis. Attempted neurosurgical consultation at this facility. Not able to be completed (no Neurosurgical consultations until October). Subsequently called [facility] to discuss with on-call neurosurgeon. Directed to Ortho Spine surgery. Spoke with Vicenta at the transfer center. Vicenta states Ortho Spine not able to review case via phone as they are unable to provide recommendations via phone but will accept for transfer. Discussed with hospitalist, Dr. Rg, who accepts the patient for admission and recommends continuing present management while monitoring repeat blood cultures until they are negative. Awaiting bed availability. Call out to [facility] to discuss with Neurosurgery/Ortho Spine surgery. Awaiting return call. Per Ana at transfer center, no bed availability and will not accept on wait list. (3) Difficulty in walking: Code(s): R26.2 - Difficulty in walking, not elsewhere classified Status: Acute Assessment and Plan: Secondary to back pain. Appreciate PT/OT evaluation Seems this may not be entirely acute. PCP visit from July 2021 suggest functional gait abnormality. Patient declined PT/OT at that time. Continue with PT/OT 10/08 still unable to stand or walk today. Was put in the chair by Aisha lift (4) Weakness: Code(s): R53.1 - Weakness Status: Acute Assessment and Plan: Likely secondary to above. TSH, B12, folate within normal limits Appreciate PT/OT evaluation (5) Paralytic ileus of large intestine: Code(s): K56.0 - Paralytic ileus Status: Acute Assessment and Plan: Abd xray shows gaseous distention of the colon, consistent with adynamic ileus or less likely distal obstruction Add suppository Add enema (6) Type 2 diabetes mellitus: Code(s): E11.9 - Type 2 diabetes mellitus without complications Status: Acute Assessment and Plan: Last A1c was 6.5 in July 2021. Blood sugars have been elevated this admission. currently 200 Continue Accu-Cheks, high dose sliding scale insulin, hypoglycemic protocol Add scheduled novolog 7 units TID
--- NOTE | 2021-10-09 09:30 | P.PNIM_ITS ---
Progress Note: A&P Assessment and Plan (1) Bacteremia: Code(s): R78.81 - Bacteremia Status: Acute Assessment and Plan: Blood cultures with growth of staphylococcus aureus in 2/2 bottles * Patient is not septic. Mild tachycardia. No leukocytosis. Low grade fever <100.4. No tachypnea. * Concerning for osteomyelitis/diskitis or in setting of worsened back pain. No evidence of infection of CT thoracic/lumbar spine. * Pt with hardware from cervical spinal surgery. No s/sx to suggest cervical infection. Monitor clinically. * Less likely consideration is transient bacteremia from cutaneous source, though patient does not have any wounds/skin openings * UA without concerns for infection. Patient asymptomatic. No evidence of GI source. CXR without concerns for infection. * Echocardiogram without vegetations. * Sensitivity results reviewed. Discussed with ID PharmD. Will discontinue Vancomycin. Transition to IV Cefazolin 2 g q8h. * Repeat blood cultures still pending * WBC is in normal 9.4 (2) Lumbar spondylosis: Code(s): M47.816 - Spondylosis without myelopathy or radiculopathy, lumbar region Status: Acute Assessment and Plan: Patient presented with increased low back pain * CT of the lumbar spine revealed moderate lumbar spondylosis with severe shasha tral canal stenosis at L3-L4 * No saddle anesthesia, loss of bowel or bladder control. Neurovascularly intact on exam. * Unable to obtain MRI due to hardware from previous cervical spinal surgery * Supportive care. Analgesics available as needed. Ice and heat as tolerated. * PCP note from July 2021 notes chronic numbness in the bilateral lower extremities, though patient states this is new onset with back pain. * Repeat CT thoracic/lumbar spine 10/07. Lumbar CT unchanged. Thoracic CT also reveals moderate spondylosis. Attempted neurosurgical consultation at this facility. Not able to be completed (no Neurosurgical consultations until October). Subsequently called [facility] to discuss with on-call neurosurgeon. Directed to Ortho Spine surgery. Spoke with Vicenta at the transfer center. Vicenta states Ortho Spine not able to review case via phone as they are unable to provide recommendations via phone but will accept for transfer. Discussed with hospitalist, Dr. Rg, who accepts the patient for admission and recommends continuing present management while monitoring repeat blood cultures until they are negative. Awaiting bed availability. Call out to [facility] to discuss with Neurosurgery/Ortho Spine surgery. Awaiting return call. Per Ana at transfer center, no bed availability and will not accept on wait list. (3) Difficulty in walking: Code(s): R26.2 - Difficulty in walking, not elsewhere classified Status: Acute Assessment and Plan: Secondary to back pain. * Appreciate PT/OT evaluation * Seems this may not be entirely acute. PCP visit from July 2021 suggest functional gait abnormality. Patient declined PT/OT at that time. * Continue with PT/OT * 10/08 still unable to stand or walk today. Was put in the chair by Aisha lift (4) Weakness: Code(s): R53.1 - Weakness Status: Acute Assessment and Plan: Likely secondary to above. * TSH, B12, folate within normal limits * Appreciate PT/OT evaluation (5) Paralytic ileus of large intestine: Code(s): K56.0 - Paralytic ileus Status: Acute Assessment and Plan: * Abd xray shows gaseous distention of the colon, consistent with adynamic ileus or less likely distal obstruction * A
[2021-10-09] MEDS: IBUPROFEN IV 800 MG/200 ML 800 MG/200 ML BAG 125 MG IVPB (10:40)
[2021-10-09 11:11] LABS: Glucose Point of Care 233 mg/dl (65-105)
[2021-10-09 13:40] VITALS: BP 146/91; PULSE 98; RESP 20; TEMP 36.2; O2SAT 95
[2021-10-09] MEDS: INSULIN ASPART (*BKC) 100 UNITS/ML SUB-Q ×2 (13:42→17:06)
[2021-10-09 16:13] LABS: Glucose Point of Care 231 mg/dl (65-105)
[2021-10-09 20:25] LABS: Glucose Point of Care 151 mg/dl (65-105)
[2021-10-09 21:27] VITALS: BP 150/71; PULSE 98; RESP 19; TEMP 37.4; O2SAT 97
[2021-10-09 22:42] VITALS: PULSE 95; O2SAT 96
[2021-10-09 22:43] VITALS: O2SAT 97
[2021-10-10] MEDS: HYDROcodone/acetaminophen (*CRX) 5-325 MG TABLET 1 TAB PO ×2 (01:02→09:42)
[2021-10-10 02:35] VITALS: PULSE 99; O2SAT 95
[2021-10-10] MEDS: ceFAZolin 2 GM/D5W 50 ML 2 GM/50 ML BAG IVPB ×3 (05:33→21:31)
[2021-10-10] MEDS: glipiZIDE 5 MG TABLET 10 MG PO ×2 (05:33→16:46)
[2021-10-10] MEDS: GABAPENTIN 300 MG CAPSULE PO ×3 (05:33→21:32)
[2021-10-10 05:45] VITALS: BP 171/77; PULSE 92; RESP 19; TEMP 36.4; O2SAT 95
[2021-10-10 06:17] LABS: Estimated CRCL calculation 88 ml/min; Estimated Glomerular Filt Rate > 60
[2021-10-10 08:16] LABS: Glucose Point of Care 223 mg/dl (65-105)
--- NOTE | 2021-10-10 08:20 | PM.IMPN ---
Progress Note: A&P Assessment and Plan (1) Bacteremia: Code(s): R78.81 - Bacteremia Status: Acute Assessment and Plan: Blood cultures with growth of staphylococcus aureus in 2/2 bottles Patient is not septic. Mild tachycardia. No leukocytosis. Low grade fever <100.4. No tachypnea. Concerning for osteomyelitis/diskitis or in setting of worsened back pain. No evidence of infection of CT thoracic/lumbar spine. Pt with hardware from cervical spinal surgery. No s/sx to suggest cervical infection. Monitor clinically. Less likely consideration is transient bacteremia from cutaneous source, though patient does not have any wounds/skin openings UA without concerns for infection. Patient asymptomatic. No evidence of GI source. CXR without concerns for infection. Echocardiogram without vegetations. Continue Cefazolin 2g IV Q8h, day 3 Repeat blood cultures NGTD WBC is in normal 9.4 (2) Paralytic ileus of large intestine: Code(s): K56.0 - Paralytic ileus Status: Acute Assessment and Plan: Abd xray shows gaseous distention of the colon, consistent with adynamic ileus or less likely distal obstruction Will repeat KUB Persistent distention of the colon, consistent with adynamic ileus or less likely distal obstruction. Abdomen still distended, soft, with active bowel sounds suppository FLAKITA Add enema (3) Lumbar spondylosis: Code(s): M47.816 - Spondylosis without myelopathy or radiculopathy, lumbar region Status: Acute Assessment and Plan: Patient presented with increased low back pain CT of the lumbar spine revealed moderate lumbar spondylosis with severe central canal stenosis at L3-L4 No saddle anesthesia, loss of bowel or bladder control. Neurovascularly intact on exam. Unable to obtain MRI due to hardware from previous cervical spinal surgery Supportive care. Analgesics available as needed. Ice and heat as tolerated. PCP note from July 2021 notes chronic numbness in the bilateral lower extremities, though patient states this is new onset with back pain. Repeat CT thoracic/lumbar spine 10/07. Lumbar CT unchanged. Thoracic CT also reveals moderate spondylosis. Increased pain control, morphine added Attempted neurosurgical consultation at this facility. Not able to be completed (no Neurosurgical consultations until October). Subsequently called [facility] to discuss with on-call neurosurgeon. Directed to Ortho Spine surgery. Spoke with Vicenta at the transfer center. Vicenta states Ortho Spine not able to review case via phone as they are unable to provide recommendations via phone but will accept for transfer. Discussed with hospitalist, Dr. Rg, who accepts the patient for admission and recommends continuing present management while monitoring repeat blood cultures until they are negative. Awaiting bed availability. [facility] stated that she should have a bed this afternoon, however, we continue to wait. (4) Difficulty in walking: Code(s): R26.2 - Difficulty in walking, not elsewhere classified Status: Acute Assessment and Plan: Secondary to back pain. Appreciate PT/OT evaluation Seems this may not be entirely acute. PCP visit from July 2021 suggest functional gait abnormality. Patient declined PT/OT at that time. Continue with PT/OT 10/10 seems that she can move legs (5) Weakness: Code(s): R53.1 - Weakness Status: Acute Assessment and Plan: Likely secondary to above. TSH, B12, folate within normal limits Appreciate PT/OT evaluation (6) Type 2 diabetes mellitus: Code(s): E11.9 - Type 2 diabetes mellitus without complications Status: Acute Assessment and Plan: Last A1c was 6.5 in July 2021. Blood sugars have been elevated this admission. currently 223 Continue Accu-Cheks, high dose sliding scale insulin, hypoglycemic protocol Add scheduled novolog, increase to 1
--- NOTE | 2021-10-10 08:20 | P.PNIM_ITS ---
Progress Note: A&P Assessment and Plan (1) Bacteremia: Code(s): R78.81 - Bacteremia Status: Acute Assessment and Plan: Blood cultures with growth of staphylococcus aureus in 2/2 bottles * Patient is not septic. Mild tachycardia. No leukocytosis. Low grade fever <100.4. No tachypnea. * Concerning for osteomyelitis/diskitis or in setting of worsened back pain. No evidence of infection of CT thoracic/lumbar spine. * Pt with hardware from cervical spinal surgery. No s/sx to suggest cervical infection. Monitor clinically. * Less likely consideration is transient bacteremia from cutaneous source, though patient does not have any wounds/skin openings * UA without concerns for infection. Patient asymptomatic. No evidence of GI source. CXR without concerns for infection. * Echocardiogram without vegetations. * Continue Cefazolin 2g IV Q8h, day 3 * Repeat blood cultures NGTD * WBC is in normal 9.4 (2) Paralytic ileus of large intestine: Code(s): K56.0 - Paralytic ileus Status: Acute Assessment and Plan: * Abd xray shows gaseous distention of the colon, consistent with adynamic ileus or less likely distal obstruction * Will repeat KUB Persistent distention of the colon, consistent with adynamic ileus or less likely distal obstruction. * Abdomen still distended, soft, with active bowel sounds * suppository FLAKITA * Add enema (3) Lumbar spondylosis: Code(s): M47.816 - Spondylosis without myelopathy or radiculopathy, lumbar region Status: Acute Assessment and Plan: Patient presented with increased low back pain * CT of the lumbar spine revealed moderate lumbar spondylosis with severe central canal stenosis at L3-L4 * No saddle anesthesia, loss of bowel or bladder control. Neurovascularly intact on exam. * Unable to obtain MRI due to hardware from previous cervical spinal surgery * Supportive care. Analgesics available as needed. Ice and heat as tolerated. * PCP note from July 2021 notes chronic numbness in the bilateral lower extremities, though patient states this is new onset with back pain. * Repeat CT thoracic/lumbar spine 10/07. Lumbar CT unchanged. Thoracic CT also reveals moderate spondylosis. * Increased pain control, morphine added Attempted neurosurgical consultation at this facility. Not able to be completed (no Neurosurgical consultations until October). Subsequently called [facility] to discuss with on-call neurosurgeon. Directed to Ortho Spine surgery. Spoke with Vicenta at the transfer center. Vicenta states Orth[facility] Sp[facility] not able to review case via phone as they are unable to provide recommendations via phone but will accept for transfer. Discussed with hospitalist, Dr. Rg, who accepts the patient for admission and recommends continuing present management while monitoring repeat blood cultures until they are negative. Awaiting bed availability. [facility] stated that she should have a bed this afternoon, however, we continue to wait. (4) Difficulty in walking: Code(s): R26.2 - Difficulty in walking, not elsewhere classified Status: Acute Assessment and Plan: Secondary to back pain. * Appreciate PT/OT evaluation * Seems this may not be entirely acute. PCP visit from July 2021 suggest functional gait abnormality. Patient declined PT/OT at that time. * Continue with PT/OT * 10/10 seems that she can move legs (5) Weakness: Code(s): R53.1 - Weakness Status: Acute Assessment and Plan: Likely secondary to abov
[2021-10-10] MEDS: LOSARTAN POTASSIUM 25 MG TABLET PO (08:35)
[2021-10-10] MEDS: DOCUSATE SODIUM 100 MG CAPSULE PO ×2 (08:35→20:13)
[2021-10-10] MEDS: MIRABEGRON 50 MG ER TABLET PO (08:35)
[2021-10-10 08:36] LABS: Basophils Percent Auto 0.4 % (0.2-1.2); Eosinophils Absolute Auto 0.1 K/mm3 (0-0.3); Eosinophils Percent Auto 1.5 % (0-4.4); Hematocrit 37.1 % (37.0-47.0); Hemoglobin 12.1 g/dL (12.0-15.0); Immature Granulocyte Absolute 0.13 K/mm3 (0.00-0.031); Immature Granulocyte Percent A 1.6 % (0-0.5); Lymphocytes Absolute Auto 0.84 K/mm3 (0.9-3.2); Lymphocytes Percent Auto 10.4 % (18.3-44.2); Mean Corpuscular HGB Conc 32.6 g/dl (32-36); Mean Corpuscular Hemoglobin 29.2 pg (26-34); Mean Corpuscular Volume 89.6 fl (80-100); Mean Platelet Volume 10.1 fl (7.4-10.4); Monocytes Absolute Auto 0.5 K/mm3 (0.1-0.6); Monocytes Percent Auto 6.4 % (2.6-8.5); Neutrophils Absolute Auto 6.4 K/mm3 (1.3-6.7); Neutrophils Percent Auto 79.7 % (45.5-73.1); Platelet Count Result 264 k/mm3 (150-375); Red Blood Count 4.14 M/mm3 (4.2-5.4); Red Cell Distribution Width 13.9 % (11.5-14.5); White Blood Count 8.1 K/mm3 (4.5-10.0)
[2021-10-10] MEDS: polyethylene glycoL 3350 17 GM POWD.PACK PO (08:36)
[2021-10-10] MEDS: BISACODYL 10 MG SUPPOSITORY RECTAL (08:37)
[2021-10-10] MEDS: ENOXAPARIN 40 MG/0.4 ML SYRINGE SUB-Q (08:37)
[2021-10-10] MEDS: FUROSEMIDE 10 MG TABLET PO (08:37)
[2021-10-10] MEDS: FAMOTIDINE 10 MG TABLET PO ×2 (08:37→17:17)
[2021-10-10] MEDS: INSULIN ASPART (*BKC) 100 UNITS/ML 16 UNITS SUB-Q (08:48)
[2021-10-10 08:50] LABS: Alanine Aminotransferase 34 U/L (6-35); Albumin Level 3.3 g/dL (3.5-5.1); Alkaline Phosphatase 254 U/L (38-126); Anion Gap 6 mmol/L (8-16); Aspartate Amino Transferase 37 U/L (14-36); Bilirubin,Total 0.8 mg/dL (0.2-1.3); Blood Urea Nitrogen 21 mg/dL (7-17); Calcium 8.5 mg/dL (8.4-10.2); Carbon Dioxide 27 mmol/L (22-30); Chloride 99 mmol/L (98-107); Estimated CRCL calculation 88 ml/min; Estimated Glomerular Filt Rate > 60; Glucose 200 mg/dL (65-110); Magnesium 1.7 mg/dL (1.6-2.3); Potassium 3.7 mmol/L (3.4-5.0); Sodium 132 mmol/L (137-145)
--- NOTE | 2021-10-10 09:50 | PCPTNOTE ---
The patient treatment was not able to be completed at this time due to patient out of room for testing. Will plan to continue treatment per plan of care.
[2021-10-10 11:44] LABS: Glucose Point of Care 146 mg/dl (65-105)
[2021-10-10] MEDS: MORPHINE SULFATE (*CRX) 2 MG/ML INJ IV PUSH ×3 (11:46→22:48)
[2021-10-10] MEDS: TIZANIDINE HCL 4 MG TABLET PO (11:46)
[2021-10-10] MEDS: INSULIN ASPART (*BKC) 100 UNITS/ML 10 UNITS SUB-Q ×2 (12:09→17:16)
[2021-10-10 14:00] VITALS: BP 145/101; PULSE 85; RESP 17; TEMP 36.6; O2SAT 96
--- NOTE | 2021-10-10 15:33 | PCPTNOTE ---
Patient refused treatment this session due to c/o back pain.
[2021-10-10 16:40] LABS: Glucose Point of Care 146 mg/dl (65-105)
[2021-10-10 20:55] LABS: Glucose Point of Care 187 mg/dl (65-105)
[2021-10-10 21:04] VITALS: BP 154/99; PULSE 96; RESP 20; TEMP 36.6; O2SAT 98
[2021-10-10 22:22] VITALS: PULSE 94; O2SAT 97
[2021-10-11] MEDS: HYDROcodone/acetaminophen (*CRX) 5-325 MG TABLET 1 TAB PO (01:40)
[2021-10-11 04:06] VITALS: PULSE 90; O2SAT 96
[2021-10-11 05:47] VITALS: BP 170/110; PULSE 90; RESP 18; TEMP 36.1; O2SAT 97
[2021-10-11] MEDS: ceFAZolin 2 GM/D5W 50 ML 2 GM/50 ML BAG IVPB ×2 (06:22→16:00)
[2021-10-11] MEDS: GABAPENTIN 300 MG CAPSULE PO ×2 (06:22→15:59)
[2021-10-11] MEDS: hydrALAZINE HCL 20 MG/ML VIAL 10 MG IV PUSH (06:22)
[2021-10-11] MEDS: glipiZIDE 5 MG TABLET 10 MG PO ×2 (06:22→17:22)
[2021-10-11] MEDS: MORPHINE SULFATE (*CRX) 2 MG/ML INJ IV PUSH ×3 (06:23→20:27)
[2021-10-11 07:50] LABS: Glucose Point of Care 196 mg/dl (65-105)
[2021-10-11 08:00] VITALS: PULSE 90; RESP 18; O2SAT 97
[2021-10-11] MEDS: INSULIN ASPART (*BKC) 100 UNITS/ML 10 UNITS SUB-Q ×3 (08:54→17:22)
[2021-10-11] MEDS: ENOXAPARIN 40 MG/0.4 ML SYRINGE SUB-Q (08:55)
[2021-10-11] MEDS: MIRABEGRON 50 MG ER TABLET PO (08:55)
[2021-10-11] MEDS: DOCUSATE SODIUM 100 MG CAPSULE PO (08:55)
[2021-10-11] MEDS: FUROSEMIDE 10 MG TABLET PO (08:55)
[2021-10-11] MEDS: LOSARTAN POTASSIUM 25 MG TABLET PO (08:56)
[2021-10-11] MEDS: FAMOTIDINE 10 MG TABLET PO ×2 (08:56→17:22)
--- NOTE | 2021-10-11 10:15 | PM.IMPN ---
Progress Note: A&P Assessment and Plan (1) Bacteremia: Code(s): R78.81 - Bacteremia Status: Acute Assessment and Plan: Blood cultures with growth of staphylococcus aureus in 2/2 bottles Patient is not septic. Mild tachycardia. No leukocytosis. Low grade fever <100.4. No tachypnea. Concerning for osteomyelitis/diskitis or in setting of worsened back pain. No evidence of infection of CT thoracic/lumbar spine. Pt with hardware from cervical spinal surgery. No s/sx to suggest cervical infection. Monitor clinically. Less likely consideration is transient bacteremia from cutaneous source, though patient does not have any wounds/skin openings UA without concerns for infection. Patient asymptomatic. No evidence of GI source. CXR without concerns for infection. Echocardiogram without vegetations. Continue Cefazolin 2g IV Q8h, day 4 Repeat blood cultures NGTD WBC is in normal 9.4 10/10/21 (2) Paralytic ileus of large intestine: Code(s): K56.0 - Paralytic ileus Status: Acute Assessment and Plan: Abd xray shows gaseous distention of the colon, consistent with adynamic ileus or less likely distal obstruction Will repeat KUB Persistent distention of the colon, consistent with adynamic ileus or less likely distal obstruction. Abdomen still distended, soft, with active bowel sounds suppository FLAKITA, explained that the patient should recieve this everyday Add enema (3) Lumbar spondylosis: Code(s): M47.816 - Spondylosis without myelopathy or radiculopathy, lumbar region Status: Acute Assessment and Plan: Patient presented with increased low back pain CT of the lumbar spine revealed moderate lumbar spondylosis with severe central canal stenosis at L3-L4 No saddle anesthesia, loss of bowel or bladder control. Neurovascularly intact on exam. Unable to obtain MRI due to hardware from previous cervical spinal surgery Supportive care. Analgesics available as needed. Ice and heat as tolerated. PCP note from July 2021 notes chronic numbness in the bilateral lower extremities, though patient states this is new onset with back pain. Repeat CT thoracic/lumbar spine 10/07. Lumbar CT unchanged. Thoracic CT also reveals moderate spondylosis. Increased pain control, morphine added Attempted neurosurgical consultation at this facility. Not able to be completed (no Neurosurgical consultations until October). Subsequently called [facility] to discuss with on-call neurosurgeon. Directed to Ortho Spine surgery. Spoke with Vicenta at the transfer center. Vicenta states Orth[facility] Spine not able to review case via phone as they are unable to provide recommendations via phone but will accept for transfer. Discussed with hospitalist, Dr. Rg, who accepts the patient for admission and recommends continuing present management while monitoring repeat blood cultures until they are negative. Awaiting bed availability. [facility] stated that she should have a bed this afternoon, however, we continue to wait. Consulted Neurology for further recommendations (4) Difficulty in walking: Code(s): R26.2 - Difficulty in walking, not elsewhere classified Status: Acute Assessment and Plan: Secondary to back pain. Appreciate PT/OT evaluation Seems this may not be entirely acute. PCP visit from July 2021 suggest functional gait abnormality. Patient declined PT/OT at that time. Continue with PT/OT 10/11 seems that she can move legs, complaining of left knee pain (5) Weakness: Code(s): R53.1 - Weakness Status: Acute Assessment and Plan: Likely secondary to above. TSH, B12, folate within normal limits Appreciate PT/OT evaluation (6) Type 2 diabetes mellitus: Code(s): E11.9 - Type 2 diabetes mellitus without complications Status: Acute Assessment and Plan: Last A1c was 6.5 in July 2021. Blood sugars have been elevated th
--- NOTE | 2021-10-11 10:15 | P.PNIM_ITS ---
Progress Note: A&P Assessment and Plan (1) Bacteremia: Code(s): R78.81 - Bacteremia Status: Acute Assessment and Plan: Blood cultures with growth of staphylococcus aureus in 2/2 bottles * Patient is not septic. Mild tachycardia. No leukocytosis. Low grade fever <100.4. No tachypnea. * Concerning for osteomyelitis/diskitis or in setting of worsened back pain. No evidence of infection of CT thoracic/lumbar spine. * Pt with hardware from cervical spinal surgery. No s/sx to suggest cervical infection. Monitor clinically. * Less likely consideration is transient bacteremia from cutaneous source, though patient does not have any wounds/skin openings * UA without concerns for infection. Patient asymptomatic. No evidence of GI source. CXR without concerns for infection. * Echocardiogram without vegetations. * Continue Cefazolin 2g IV Q8h, day 4 * Repeat blood cultures NGTD * WBC is in normal 9.4 10/10/21 (2) Paralytic ileus of large intestine: Code(s): K56.0 - Paralytic ileus Status: Acute Assessment and Plan: * Abd xray shows gaseous distention of the colon, consistent with adynamic ileus or less likely distal obstruction * Will repeat KUB Persistent distention of the colon, consistent with adynamic ileus or less likely distal obstruction. * Abdomen still distended, soft, with active bowel sounds * suppository FLAKITA, explained that the patient should recieve this everyday * Add enema (3) Lumbar spondylosis: Code(s): M47.816 - Spondylosis without myelopathy or radiculopathy, lumbar region Status: Acute Assessment and Plan: Patient presented with increased low back pain * CT of the lumbar spine revealed moderate lumbar spondylosis with severe central canal stenosis at L3-L4 * No saddle anesthesia, loss of bowel or bladder control. Neurovascularly intact on exam. * Unable to obtain MRI due to hardware from previous cervical spinal surgery * Supportive care. Analgesics available as needed. Ice and heat as tolerated. * PCP note from July 2021 notes chronic numbness in the bilateral lower extremities, though patient states this is new onset with back pain. * Repeat CT thoracic/lumbar spine 10/07. Lumbar CT unchanged. Thoracic CT also reveals moderate spondylosis. * Increased pain control, morphine added Attempted neurosurgical consultation at this facility. Not able to be completed (no Neurosurgical consultations until October). Subsequently called [facility] to discuss with on-call neurosurgeon. Directed to Ortho Spine surgery. Spoke with Vicenta at the transfer center. Vicenta states Ortho Spine not able to review case via phone as they are unable to provide recommendations via phone but will accept for transfer. Discussed with hospitalist, Dr. Rg, who accepts the patient for admission and recommends continuing present management while monitoring repeat blood cultures until they are negative. Awaiting bed availability. [facility] stated that she should have a bed this afternoon, however, we continue to wait. Consulted Neurology for further recommendations (4) Difficulty in walking: Code(s): R26.2 - Difficulty in walking, not elsewhere classified Status: Acute Assessment and Plan: Secondary to back pain. * Appreciate PT/OT evaluation * Seems this may not be entirely acute. PCP visit from July 2021 suggest functional gait abnormality. Patient declined PT/OT at that time. * Continue with PT/OT * 10/11 seems that she can move legs, complaining of left knee pain
[2021-10-11 11:53] LABS: Glucose Point of Care 204 mg/dl (65-105)
[2021-10-11 12:09] VITALS: BP 145/80
[2021-10-11] MEDS: INSULIN ASPART (*BKC) 100 UNITS/ML SUB-Q (12:21)
[2021-10-11 14:00] VITALS: BP 160/76; PULSE 96; RESP 20; TEMP 36.6; O2SAT 96
--- NOTE | 2021-10-11 14:00 | WPDNEURCNPN ---
Assessment and Plan Assessment and plan (1) Spinal stenosis: Code(s): M48.00 - Spinal stenosis, site unspecified Status: Acute Assessment and Plan: Even though it is postsurgical problem but she has severe spinal stenosis she definitely needs to have the neurosurgical intervention and leukopenia in the meantime only we can do street her pain and as soon as a bed is available she should be transferred to the surgical service Consult date: 10/11/21 Time Seen: 11:30 Reason for consult: Spinal stenosis HPI: Larissa Rider is a 66 year old female admitted to the hospital through the emergency room with ongoing history of 1. Spinal stenosis with status post lower back surgery but persistence of the pain excruciating in nature with total inability to ambulate in spite of using the walker. Patient has been receiving for gabapentin 300 mg 3 times a day along with Myrbetriq 50 mg daily. She has ongoing history of 1. Spinal surgery in the neck with je implantations and fusion 3. Carpal tunnel surgeries 4. Total abdominal hysterectomy 5. Obstructive sleep apnea 6. Type 2 diabetes mellitus. Evaluation up until now in the hospital includes CT scan of the lumbar spine documenting moderate central canal stenosis at L2-3 severe central canal stenosis at L2 L3-4 and moderate central canal stenosis at L4-5 in addition to mild stenosis at L5-S1 and neuro consultation has been obtained for that particular reason while she is waiting for the neurosurgical consultation and intervention Review of Systems Review of Systems: All systems reviewed & are unremarkable except as noted in HPI and below PMFSH Past Medical History Medical History (Updated 10/11/21 @ 14:06 by Subhash Ford MD) Carpal tunnel syndrome Functional gait abnormality GERD (gastroesophageal reflux disease) Hypertension Obstructive sleep apnea Overactive bladder Type 2 diabetes mellitus Surgical History Surgical History (Updated 10/05/21 @ 12:56 by Stephenie Sheth PA-C) History of cervical spinal surgery Rods implanted History of section History of laparoscopic cholecystectomy History of spinal fusion History of surgery on wrist Carpal tunnel surgery History of total abdominal hysterectomy and bilateral salpingo-oophorectomy 1999 Family History Family History Father Acute myocardial infarction Mother Lung cancer Grandparent Breast cancer Social History Social History (Updated 10/05/21 @ 12:59 by Stephenie Sheth PA-C) Social History: Ms. Rider lives alone in a senior apartment. She [place] [facility] [place] about 3 months ago to be closer to her daughter. Her primary care provider is Dr. Kat. She is retired. She is typically independent in her daily activities. She designates her daughter, Larissa Spence as her surrogate decision maker. She would like to be a DNR. Smoking status: Never smoker Second hand tobacco smoke exposure: No Alcohol intake: never Substance use: never Substance use type: does not use Gender identity (if verbalized by the patient): Female Spiritual care concerns: No Meds Home Medications and Allergies Home Medications Medication Instructions Recorded Confirmed Type celecoxib 200 mg capsule (Celebrex) 200 mg PO DAILY 08/04/21 10/05/21 History famotidine 10 mg tablet 10 mg PO BID 08/04/21 10/05/21 History gabapentin 300 mg capsule 300 mg PO TID 08/04/21 10/05/21 History glipizide 10 mg tablet 10 mg PO BID 08/04/21 10/05/21 History mirabegron 50 mg tablet,extended 50 mg PO DAILY 08/05/21 10/05/21 History release 24 hr (Myrbetriq) furosemide 20 mg tablet 10 mg PO QAM #90 tabs 08/23/21 10/05/21 Rx dulaglutide 1.5 mg/0.5 mL 1.5 mg (0.5 mL) subcut WEEKLY #2 mL 08/29/21 10/05/21 Rx [facility] pen needle, diabetic 31 gauge x #100 ea 08/29/21 10/05/21 Rx 5/16 (BD Ultra-Fine Short Pen Ne
[2021-10-11] MEDS: BISACODYL 10 MG SUPPOSITORY RECTAL (16:34)
[2021-10-11 16:53] LABS: Glucose Point of Care 135 mg/dl (65-105)
[2021-10-11 20:19] VITALS: BP 153/87; PULSE 97; RESP 18; TEMP 36.4; O2SAT 95
[2021-10-11 22:44] LABS: Glucose Point of Care 140 mg/dl (65-105)
--- NOTE | 2021-10-12 08:13 | P.TS_ITS ---
Transfer Discharge Sum: Prov Provider Date of admission: 10/07/21 10:17 Primary care physician: Shey Del Valle MD Admitting clinician: Chiara Savage DO Attending physician on admission: Chiara Savage Consults: 10/08/21 08:31 Consult to Physician Routine Comment: spoke to office @[phone](,us) Consulting Provider: Rick Nixon manager call center/MD group to consult: Neurosurgery-not available until 10/25/21 Reason for consultation: Low back pain, inability to walk, bacteremia Has provider been notified: Yes 10/10/21 Consult to Physician Routine Comment: Consulting Provider: Subhash Ford manager call center/MD group to consult: neurology Reason for consultation: bilateral lower extremity weakness Has provider been notified: Yes Attending physician on discharge: Roman Jenkins Discharging clinician: Dez Kerns Anticipated date of transfer: 10/11/21 Receiving physician/facility: [facility] Dr. Rg DS: Admitting Diagnosis Discharge Date 10/11/21 Admitting Diagnosis Bacteremia/weakness DS: Discharge Diagnosis Discharge Diagnosis (1) Bacteremia: Code(s): R78.81 - Bacteremia Status: Acute Assessment and Plan: Blood cultures with growth of staphylococcus aureus in 2/2 bottles * Patient is not septic. Mild tachycardia. No leukocytosis. Low grade fever <100.4. No tachypnea. * Concerning for osteomyelitis/diskitis or in setting of worsened back pain. No evidence of infection of CT thoracic/lumbar spine. * Pt with hardware from cervical spinal surgery. No s/sx to suggest cervical infection. Monitor clinically. * Less likely consideration is transient bacteremia from cutaneous source, though patient does not have any wounds/skin openings * UA without concerns for infection. Patient asymptomatic. No evidence of GI source. CXR without concerns for infection. * Echocardiogram without vegetations. * Continue Cefazolin 2g IV Q8h, day 4 * Repeat blood cultures NGTD * WBC is in normal 9.4 10/10/21 (2) Paralytic ileus of large intestine: Code(s): K56.0 - Paralytic ileus Status: Acute Assessment and Plan: * Abd xray shows gaseous distention of the colon, consistent with adynamic ileus or less likely distal obstruction * Will repeat KUB Persistent distention of the colon, consistent with adynamic ileus or less likely distal obstruction. * Abdomen still distended, soft, with active bowel sounds * suppository FLAKITA, explained that the patient should recieve this everyday * Add enema (3) Lumbar spondylosis: Code(s): M47.816 - Spondylosis without myelopathy or radiculopathy, lumbar region Status: Acute Assessment and Plan: Patient presented with increased low back pain * CT of the lumbar spine revealed moderate lumbar spondylosis with severe central canal stenosis at L3-L4 * No saddle anesthesia, loss of bowel or bladder control. Neurovascularly intact on exam. * Unable to obtain MRI due to hardware from previous cervical spinal surgery * Supportive care. Analgesics available as needed. Ice and heat as tolerated. * PCP note from July 2021 notes chronic numbness in the bilateral lower extremities, though patient states this is new onset with back pain. * Repeat CT thoracic/lumbar spine 10/07. Lumbar CT unchanged. Thoracic CT also reveals moderate spondylosis. * Increased pain control, morphine added Attempted neurosurgical consultatio
--- NOTE | 2021-10-12 08:13 | PM.TDS ---
Transfer Discharge Sum: Prov Provider Date of admission: 10/07/21 10:17 Primary care physician: Shey Del Valle MD Admitting clinician: Chiara Savage DO Attending physician on admission: Chiara Savage Consults: 10/08/21 08:31 Consult to Physician Routine Comment: spoke to office @[phone](,us) Consulting Provider: Rick Nixon orthopedically impaired teacher/MD group to consult: Neurosurgery-not available until 10/25/21 Reason for consultation: Low back pain, inability to walk, bacteremia Has provider been notified: Yes 10/10/21 Consult to Physician Routine Comment: Consulting Provider: Subhash Ford orthopedically impaired teacher/MD group to consult: neurology Reason for consultation: bilateral lower extremity weakness Has provider been notified: Yes Attending physician on discharge: Roman Jenkins Discharging clinician: Dez Kerns Anticipated date of transfer: 10/11/21 Receiving physician/facility: [facility] Dr. Rg DS: Admitting Diagnosis Discharge Date 10/11/21 Admitting Diagnosis Bacteremia/weakness DS: Discharge Diagnosis Discharge Diagnosis (1) Bacteremia: Code(s): R78.81 - Bacteremia Status: Acute Assessment and Plan: Blood cultures with growth of staphylococcus aureus in 2/2 bottles Patient is not septic. Mild tachycardia. No leukocytosis. Low grade fever <100.4. No tachypnea. Concerning for osteomyelitis/diskitis or in setting of worsened back pain. No evidence of infection of CT thoracic/lumbar spine. Pt with hardware from cervical spinal surgery. No s/sx to suggest cervical infection. Monitor clinically. Less likely consideration is transient bacteremia from cutaneous source, though patient does not have any wounds/skin openings UA without concerns for infection. Patient asymptomatic. No evidence of GI source. CXR without concerns for infection. Echocardiogram without vegetations. Continue Cefazolin 2g IV Q8h, day 4 Repeat blood cultures NGTD WBC is in normal 9.4 10/10/21 (2) Paralytic ileus of large intestine: Code(s): K56.0 - Paralytic ileus Status: Acute Assessment and Plan: Abd xray shows gaseous distention of the colon, consistent with adynamic ileus or less likely distal obstruction Will repeat KUB Persistent distention of the colon, consistent with adynamic ileus or less likely distal obstruction. Abdomen still distended, soft, with active bowel sounds suppository FLAKITA, explained that the patient should recieve this everyday Add enema (3) Lumbar spondylosis: Code(s): M47.816 - Spondylosis without myelopathy or radiculopathy, lumbar region Status: Acute Assessment and Plan: Patient presented with increased low back pain CT of the lumbar spine revealed moderate lumbar spondylosis with severe central canal stenosis at L3-L4 No saddle anesthesia, loss of bowel or bladder control. Neurovascularly intact on exam. Unable to obtain MRI due to hardware from previous cervical spinal surgery Supportive care. Analgesics available as needed. Ice and heat as tolerated. PCP note from July 2021 notes chronic numbness in the bilateral lower extremities, though patient states this is new onset with back pain. Repeat CT thoracic/lumbar spine 10/07. Lumbar CT unchanged. Thoracic CT also reveals moderate spondylosis. Increased pain control, morphine added Attempted neurosurgical consultation at this facility. Not able to be completed (no Neurosurgical consultations until October). Subsequently called [facility] to discuss with on-call neurosurgeon. Directed to Ortho Spine surgery. Spoke with Vicenta at the transfer center. Vicenta states [facility] not able to review case via phone as they are unable to provide recommendations via phone but will accept for transfer. Discussed with hospitalist, Dr. Rg, who accepts the patient for admission and recommends continuing present management while monitoring repeat bloo
== END 2021-10-11 20:51 | disposition short-term general hospital (02) | DRG 552 ==
LOC: ANHED 08:32 → ANH3MEDSUR 11:41
PROVIDERS: Internal Medicine; Nurse Practitioner Adult Health; Physician Assistant; Admitting Provider Student in an Organized Health Care Education/Training Program; Emergency Provider Emergency Medicine; PCP Family Medicine; Visit Provider Nurse Practitioner
DX: M47.816 Spondylosis without myelopathy or radiculopathy, lumbar region (principal); K56.0 Paralytic ileus; R78.81 Bacteremia; E87.1 Hypo-osmolality and hyponatremia; Z68.41 Body mass index [BMI] 40.0-44.9, adult; M48.061 Spinal stenosis, lumbar region without neurogenic claudication; B95.61 Methicillin susceptible Staphylococcus aureus infection as the cause of diseases classified elsewhere; Z20.822 Contact with and (suspected) exposure to COVID-19; R26.2 Difficulty in walking, not elsewhere classified; R53.1 Weakness; R09.02 Hypoxemia; I10 Essential (primary) hypertension; E11.9 Type 2 diabetes mellitus without complications; G47.33 Obstructive sleep apnea (adult) (pediatric); M25.562 Pain in left knee; K21.9 Gastro-esophageal reflux disease without esophagitis; N32.81 Overactive bladder; E66.9 Obesity, unspecified; Z90.49 Acquired absence of other specified parts of digestive tract; Z98.1 Arthrodesis status; Z90.710 Acquired absence of both cervix and uterus; Z90.722 Acquired absence of ovaries, bilateral
CPT/HCPCS: 36415; 71046; 72128; 72131; 73562; 74018; 80048; 80053; 80202; 81001; 82565; 82607; 82746; 82948; 83735; 84295; 84443; 85025; 85027; 85055; 87040; 87077; 87186; 93306; 96365; 96366; 96372; 96375; 96376; 97110; 97161; 97165; 97530; 97535; 99285; A9270; C9803; G0378; J0360; J0690; J1650; J1741; J1815; J2270; J3370; U0003; U0005

== ENCOUNTER 2021-12-06 14:48 | Outpatient (CLI) | payer MEDICARE, SELFPAY ==
[2021-12-06 15:10] LABS: Basophils Absolute Auto 0.1 K/mm3 (0.0-0.1); Basophils Percent Auto 0.8 % (0.2-1.2); Eosinophils Absolute Auto 0.3 K/mm3 (0-0.3); Eosinophils Percent Auto 4.7 % (0-4.4); Hematocrit 31.3 % (37.0-47.0); Immature Granulocyte Absolute 0.04 K/mm3 (0.00-0.031); Immature Granulocyte Percent A 0.6 % (0-0.5); Lymphocytes Absolute Auto 1.25 K/mm3 (0.9-3.2); Lymphocytes Percent Auto 19.6 % (18.3-44.2); Mean Corpuscular HGB Conc 31.9 g/dl (32-36); Mean Corpuscular Hemoglobin 28.5 pg (26-34); Mean Corpuscular Volume 89.2 fl (80-100); Mean Platelet Volume 9.5 fl (7.4-10.4); Monocytes Absolute Auto 0.6 K/mm3 (0.1-0.6); Monocytes Percent Auto 8.8 % (2.6-8.5); Neutrophils Absolute Auto 4.2 K/mm3 (1.3-6.7); Neutrophils Percent Auto 65.5 % (45.5-73.1); Platelet Count Result 137 k/mm3 (150-375); Red Blood Count 3.51 M/mm3 (4.2-5.4); Red Cell Distribution Width 14.6 % (11.5-14.5); White Blood Count 6.4 K/mm3 (4.5-10.0)
[2021-12-06 15:20] LABS: Alanine Aminotransferase 11 U/L (6-35); Albumin Level 3.7 g/dL (3.5-5.1); Alkaline Phosphatase 139 U/L (38-126); Anion Gap 9 mmol/L (8-16); Aspartate Amino Transferase 23 U/L (14-36); Bilirubin,Total 0.6 mg/dL (0.2-1.3); Blood Urea Nitrogen 17 mg/dL (7-17); Calcium 9.3 mg/dL (8.4-10.2); Carbon Dioxide 30 mmol/L (22-30); Chloride 99 mmol/L (98-107); Estimated Glomerular Filt Rate 45; Glucose 165 mg/dL (65-110); Potassium 3.5 mmol/L (3.4-5.0); Sodium 138 mmol/L (137-145)
[2021-12-06 16:30] LABS: Appearance Urine Slightly Cloudy (Clear); Bilirubin Urine Negative (Negative); Blood Urine 3+ (Negative); Color Urine Yellow (Yellow); Glucose Urine UA Negative (Negative); Ketones Urine Negative (Negative); Leukocyte Esterase Ur 3+ LEU/UL (Negative); Nitrate Urine Negative (Negative); Protein Urine 2+ mg/dL (Negative); Specific Grav Ur 1.015 (1.001-1.035); Urobilinogen Urine 0.2 mg/dL (<2.0); pH Urine 5.5 (5.0-9.0)
[2021-12-06 16:35] LABS: Bacteria Urine Trace /hpf; Mucus Urine Rare /lpf; RBC Urine >75 /hpf (0-2); Squamous Epithelial Cell Urine Occasional /hpf (Few); WBC Clumps Urine Present /HPF; WBC Urine >75 /hpf
[2021-12-06 16:42] LABS: Add Urine Microscopic? YES
[2021-12-06 17:49] LABS: Hemoglobin A1C 6.5 % (<5.7)
== END 2021-12-06 14:49 | disposition home or self-care (01) ==
PROVIDERS: PCP Family Medicine; Visit Provider Nurse Practitioner Gerontology
DX: R50.9 Fever, unspecified (principal); E11.9 Type 2 diabetes mellitus without complications; R53.1 Weakness; R78.81 Bacteremia; R30.0 Dysuria
CPT/HCPCS: 36415; 80053; 81001; 83036; 85025; 87040; 87077; 87086; 87186

== ENCOUNTER 2022-06-25 17:43 | Emergency (ER) | payer MEDICARE, SELFPAY ==
--- NOTE | 2022-06-25 18:40 | PC.NURSE ---
patient walked out of the ed at this time with family member. Patient had a steady gait and walked with no difficulty.
== END 2022-06-25 18:55 | disposition left against medical advice (07) ==
PROVIDERS: PCP Family Medicine
DX: Z53.21 Procedure and treatment not carried out due to patient leaving prior to being seen by health care provider (principal)
CPT/HCPCS: 99199

== ENCOUNTER 2024-07-23 09:04 | Emergency (ER) | payer MEDICARE, OTHER, SELFPAY ==
--- NOTE | ~2024-07-23 | XR_ITS ---
EXAMINATION: XR wrist LT min 3V DATE: 07/23/2024 09:46 INDICATION: Left wrist pain. TECHNIQUE: 3 views of left wrist were obtained. COMPARISON: None. FINDINGS: Alignment is normal. No fracture. There is moderate osteoarthritis of triscaphe joint and m ild osteoarthritis of first carpometacarpal joint. There is degenerative cystic change in distal ulna and proximal lunate, consistent with ulnolunate impaction syndrome. There is mild osteoarthritis of some of the metacarpophalangeal joints and interphalangeal joints. There are dystrophic calcification s in the radiocarpal compartment. IMPRESSION: 1. Polyarticular osteoarthritis. Reviewed, dictated and finalized at location A.
[2024-07-23 09:15] VITALS: BP 147/76; PULSE 73; RESP 20; TEMP 36.4; O2SAT 97
--- NOTE | 2024-07-23 09:37 | ED.EXTPRO ---
HPI - Extremity Problem General Chief complaint: Extremity Problem,Nontraumatic Stated complaint: Left Wrist Swollen Time Seen by Provider: 07/23/24 09:37 Source: patient, RN notes reviewed and old records reviewed Mode of arrival: ambulatory Limitations: no limitations History of Present Illness HPI Narrative: 69-year-old female presents to the [facility] with complaints of left wrist pain and swelling that started yesterday morning. Denies any injury. Reports that she has taken tramadol and Tylenol. Decreased range of motion secondary to pain. Mild swelling to the ulnar aspect Related Data Home Medications ?Medication ?Instructions ?Recorded ?Confirmed ?Last Taken ?Type celecoxib 200 mg capsule (Celebrex) 200 mg PO DAILY 08/04/21 12/06/21 08/04/21 History famotidine 10 mg tablet 10 mg PO BID 08/04/21 12/06/21 08/04/21 History mirabegron 50 mg tablet,extended 50 mg PO DAILY 08/05/21 12/06/21 08/04/21 History release 24 hr (Myrbetriq) amlodipine 5 mg tablet 5 mg PO DAILY 12/06/21 12/06/21 Unknown History hydrochlorothiazide 25 mg tablet 25 mg PO DAILY 12/06/21 12/06/21 Unknown History losartan 50 mg tablet 50 mg PO DAILY 12/06/21 12/06/21 Unknown History Allergies Allergy/AdvReac Type Severity Reaction Status Date / Time azithromycin AdvReac Nausea and Verified 07/23/24 09:41 Vomiting Review of Systems Review of Systems: All systems reviewed & are unremarkable except as noted in HPI and below Constitutional: Constitutional: Reports no additional constitutional complaints ENT: Reports system reviewed and no additional complaints, except as documented Cardiovascular: Cardiovascular: Reports no additional cardiovascular complaints, Denies chest pain and Denies dyspnea Respiratory: Respiratory: Reports no additional respiratory complaints, Denies chest congestion, Denies cough and Denies dyspnea Musculoskeletal: Musculoskeletal: Reports as per HPI Integumentary/Breasts: Skin/Breast: Reports system reviewed and no additional complaints, except as docu PMFSH Past Medical History Medical History Functional gait abnormality Carpal tunnel syndrome Obstructive sleep apnea GERD (gastroesophageal reflux disease) Overactive bladder Hypertension Type 2 diabetes mellitus Surgical History Surgical History History of section History of surgery on wrist Carpal tunnel surgery History of cervical spinal surgery Rods implanted History of spinal fusion History of laparoscopic cholecystectomy History of total abdominal hysterectomy and bilateral salpingo-oophorectomy 1999 Family History Family History Father Acute myocardial infarction Mother Lung cancer Grandparent Breast cancer Social History Social History Social History: Ms. Rider lives alone in a senior apartment. She moved to [facility] from [place] about 3 months ago to be closer to her daughter. Her primary care provider is Dr. Kat. She is retired. She is typically independent in her daily activities. She designates her daughter, Larissa Spence as her surrogate decision maker. She would like to be a DNR. Smoking status: Never smoker Second hand tobacco smoke exposure: No Alcohol intake: never Substance use: never Substance use type: does not use Living arrangements: [facility] Occupation/Education: retired Gender identity (if verbalized by the patient): Female Sexual Orientation (if Verbalized by the Patient): Straight or Heterosexual Spiritual care concerns: No Comments At the time of my signature, I reviewed and agree with the nursing past medical, surgical, social, and family history. There is no relevant family history pertinent to the patient complaint. Exam Const: General: cooperative, comfortable, no acute distress, well developed, alert, ill appearing chronically; not acutely and well nourished Nutritional Appearance: well nourished Orientation/consciousness: patient oriented x3 Limitations: no limitations HENMT: Head: normal to inspection Eyes: General: appearance normal, both eyes and all related structures Alignment and Position: alignment normal Neck: Neck: normal visual inspection, full ROM, no lymphadenopathy and no meningeal signs Chest: Chest palpation & inspection: normal inspection of the chest Resp: Effort & Inspection: normal respiratory effort and able to speak in complete sentences Auscultation: clear to auscultation bilaterally, no crackles, no rales, no rhonchi and no wheezes Cardio: Rate: regular rate Skin: General skin exam: normal color and no rashes or lesions noted Neuro: General: patient oriented x3, gait normal, moves all extremities and no meningeal signs Cognition (Neuro): normal cognition Speech: normal speech Gait exam (Neuro): Normal gait present Extrem: General: normal to inspection, full ROM, capillary refill normal and normal gait Right upper extremity: wrist tenderness of the distal ulna, abnormal ROM pain with active ROM during, normal vascular exam and radial pulse present; no lacerations and no ecchymosis Psych: Appearance: grossly normal and well kempt Mental Status: mental status grossly normal Speech and movement: Normal speech and movement present and Clear speech present Affect: normal affect Attitude: cooperative Course Course Level of Care: Express Care Visit Vital Signs Vital signs: Vital Signs Temperature 97.5 F L 07/23/24 09:15 Pulse Rate 73 07/23/24 09:15 Respiratory Rate 20 07/23/24 09:15 Blood Pressure 147/76 H 07/23/24 09:15 Pulse Oximetry 97 07/23/24 09:15 Oxygen Delivery Room Air 07/23/24 09:15 Temperature 97.5 F L 07/23/24 09:15 Pulse Rate 73 07/23/24 09:15 Respiratory Rate 20 07/23/24 09:15 Blood Pressure 147/76 H 07/23/24 09:15 Pulse Oximetry 97 07/23/24 09:15 Oxygen Delivery Room Air 07/23/24 09:15 Reviewed MDM - Extremity (Nontraumatic) MDM Narrative Medical decision making narrative: Patient sitting in exam room. Nontoxic, vitals stable. Patient presents with left wrist pain without injury since yesterday. X-ray shows polyarticular osteoarthritis. Discussed that this is most likely a flare of the arthritic changes. Discussed the importance of following up with primary care provider. Patient appropriate for outpatient treatment and follow-up Discharge instructions reviewed with patient, as well as provided in writing per nursing staff. The instructions also include specific and strict return/GO TO THE ER as well as f/u information. All questions have been answered, and the patient deny any further questions with discharge and discharge plan. Some parts of this dictation were generated by voice recognition software and may contain typographical and/or grammatical inaccuracies. Differential Diagnosis Differential diagnosis: Likely gout and other (Sprain, strain, fracture) Imaging Data Radiologist's impression: EXAMINATION: XR wrist LT min 3V DATE: 07/23/2024 09:46 INDICATION: Left wrist pain. TECHNIQUE: 3 views of left wrist were obtained. COMPARISON: None. FINDINGS: Alignment is normal. No fracture. There is moderate osteoarthritis of triscaphe joint and mild osteoarthritis of first carpometacarpal joint. There is degenerative cystic change in distal ulna and proximal lunate, consistent with ulnolunate impaction syndrome. There is mild osteoarthritis of some of the metacarpophalangeal joints and interphalangeal joints. There are dystrophic calcifications in the radiocarpal compartment. IMPRESSION: 1. Polyarticular osteoarthritis. Critical Care Time Critical Care Time Critical Care Time: No Discharge Plan Discharge Clinical Impression: Polyarticular osteoarthritis Patient Disposition: Home, Self-Care Condition: Stable Instructions: Osteoarthritis (DC) Additional Instructions: Wear the Mukesh wrap during the day or at night. Do not wear more than 10-12 hours per day. Most importantly is following up with your primary care provider for further evaluation, testing Patient Language: Amharic Prescriptions: No Action losartan 50 mg tablet 50 mg PO DAILY amlodipine 5 mg tablet 5 mg PO DAILY hydrochlorothiazide 25 mg tablet 25 mg PO DAILY celecoxib [Celebrex] 200 mg Capsule 200 mg PO DAILY famotidine 10 mg Tablet 10 mg PO BID Myrbetriq 50 mg Tablet Extended Release 24 Hr 50 mg PO DAILY Trulicity 1.5 mg/0.5 mL pen injector 1.5 mg subcut WEEKLY Qty: 2 3RF (DME) pen needle, diabetic [BD Ultra-Fine Short Pen Needle] 31 gauge x 5/16 needle See Rx Instructions .Route Qty: 100 0RF Rx Instructions: with trulicity pen weekly urea 20 % cream 1 applic topical BID Qty: 85 0RF Patient Comments: apply to face and hands glipizide 10 mg tablet See Rx Instructions .ROUTE .COMPLEX Qty: 180 1RF Dose Instruction: TAKE 1 TABLET BY MOUTH TWICE DAILY Rx Instructions: TAKE 1 TABLET BY MOUTH TWICE DAILY gabapentin 300 mg capsule See Rx Instructions .ROUTE .COMPLEX Qty: 90 5RF Dose Instruction: TAKE 1 CAPSULE BY MOUTH THREE TIMES DAILY Rx Instructions: TAKE 1 CAPSULE BY MOUTH THREE TIMES DAILY furosemide 20 mg tablet See Rx Instructions .ROUTE .COMPLEX Qty: 90 0RF Dose Instruction: TAKE 1/2 TABLET BY MOUTH EVERY MORNING Rx Instructions: TAKE 1/2 TABLET BY MOUTH EVERY MORNING hydralazine 10 mg tablet See Rx Instructions .ROUTE .COMPLEX Qty: 180 0RF Dose Instruction: TAKE 1 TABLET BY MOUTH TWICE DAILY Rx Instructions: TAKE 1 TABLET BY MOUTH TWICE DAILY Follow-up/Referrals: Carleen,GLORY Nice [Primary Care Provider] - 2 Weeks ([facility]) Time of Disposition: 10:21
== END 2024-07-23 10:25 | disposition home or self-care (01) ==
PROVIDERS: Emergency Provider Nurse Practitioner; PCP Registered Nurse
DX: M19.032 Primary osteoarthritis, left wrist (principal); I10 Essential (primary) hypertension; E11.9 Type 2 diabetes mellitus without complications; Z79.84 Long term (current) use of oral hypoglycemic drugs; Z79.85 Long-term (current) use of injectable non-insulin antidiabetic drugs; N32.81 Overactive bladder; K21.9 Gastro-esophageal reflux disease without esophagitis; Z90.710 Acquired absence of both cervix and uterus; Z90.722 Acquired absence of ovaries, bilateral
CPT/HCPCS: 73110; 99213; G0463